=== PATIENT | male | born 1940 | race Two or more races ===

== ENCOUNTER 2017-09-15 10:58 | Emergency (ER) | payer MEDICARE, MEDICAID ==
[~2017-09-15] VITALS: Ht 165.1 cm; Wt 77.1 kg
--- NOTE | 2017-09-15 11:05 | NUR ---
C/O LEFT EYE REDNESS X1 DAY MANAGER CLEANING, NO DRAINAGE. A/OX 4. BREATHING EVEN AND UNLABORED. NO SOB. VITALS STABLE. SAFETY AND COMFORT MEASURES IN PLACE. AWAITING MD ORDERS.
--- NOTE | 2017-09-15 11:42 | NUR ---
AT BEDSIDE FOR EVAL.
[2017-09-15] MEDS ORDERED: LABETALOL HCL (100MG) 100 MG TABLET PO ONE (12:00)
[2017-09-15] MEDS ORDERED: LABETALOL HCL (100MG) 100 MG TABLET ONE (12:00)
[2017-09-15 12:11] VITALS: BP 171/99
--- NOTE | 2017-09-15 12:12 | NUR ---
Patient discharged to home in stable condition. Written and verbal after care instructions given. Patient verbalizes understanding of instruction.
== END 2017-09-15 12:12 | disposition home or self-care (01) ==
LOC: ER 11:06
DX: H11.32 Conjunctival hemorrhage, left eye (principal); I10 Essential (primary) hypertension; E11.9 Type 2 diabetes mellitus without complications; Z98.890 Other specified postprocedural states
CPT/HCPCS: A4606; Z7610

== ENCOUNTER 2020-03-08 12:10 | Inpatient (IN) | payer MEDICARE, OTHER ==
[~2020-03-08] VITALS: Ht 160 cm; Wt 63.5 kg
[~2020-03-08 12:10] MED LIST: *INS REG SQ; INSU100V7 SQ
[2020-03-08 12:40] LABS: BASOPHILS % (AUTO) 0.5 % (0.0-2.0); HEMATOCRIT 43 % (39-51); HEMOGLOBIN 14.3 g/dL (13.5-17.5); LYMPHOCYTES # (AUTO) 0.4 /CMM (0.8-4.8); LYMPHOCYTES % (AUTO) 5.8 % (20.0-44.0); MEAN CORPUSCULAR HGB CONC 33 g/dl (31.0-36.0); MEAN CORPUSCULAR VOLUME 95 fL (80-96); MONOCYTES # (AUTO) 0.1 /CMM (0.1-1.30); NEUTROPHILS # (AUTO) 6.7 /CMM (1.8-8.9); NEUTROPHILS % (AUTO) 92.7 % (43.0-81.0); PLATELET COUNT (AUTO) 336 /CMM (150-450); RED BLOOD CELL COUNT(AUTO) 4.53 MIL/uL (4.5-6.0); WHITE BLOOD COUNT (AUTO) 7.2 K/uL (4.3-11.0)
[2020-03-08 12:48] LABS: CALCIUM, SERUM 9.5 mg/dL (8.5-10.1); CARBON DIOXIDE 25 mmol/L (21-32); CHLORIDE 110 mmol/L (98-107); CREATININE 1.3 mg/dL (0.6-1.3); GLUCOSE 128 mg/dL (74-106); POTASSIUM 3.5 mmol/L (3.5-5.1); SODIUM SERUM 147 mmol/L (136-145); UREA NITROGEN, BLOOD 31 mg/dL (7-18)
[2020-03-08 12:56] LABS: APPEARANCE,URINE Clear (CLEAR); BILIRUBIN,URINE Negative (NEGATIVE); BLOOD, URINE Moderate Ery/uL (NEGATIVE); COLOR,URINE Yellow (YELLOW); KETONES,URINE Trace (NEGATIVE); LEUKOCYTE ESTERASE ,URINE Negative (NEGATIVE); NITRITE, URINE Negative (NEGATIVE); PH,URINE 5.5 (5.0-8.0); PROTEIN,URINE 100 mg/dl (NEGATIVE); UGLUCOSE >=1000 mg/dL (NEGATIVE); UROBILINOGEN,URINE 0.2 EU/dL (0.2)
--- NOTE | 2020-03-08 12:58 | NUR ---
BIB [facility] FROM [facility], LOW O2 SAT (80'S),DIAPHORETIC. PT NON VERBAL, EYES OPEN ONLY. PT O2 SAT 87%, PLACED ON 6L OF O2 BY RT, O2 SAT 96%. PT SEEN & EVAL'D BY DR. BRUSH. LABS DRAWN & COVID 19 RUBBER TUBING SPLICER SWAB COLLECTED & SENT TO LAB. PT STABLE, NO RESP DISTRESS @ THIS TIME. WILL CONT TO MONITOR.
[2020-03-08 13:01] LABS: ALANINE AMINOTRANSFERASE 53 U/L (12-78); ALBUMIN 2.6 g/dL (3.4-5.0); ALKALINE PHOSPHATASE 105 U/L (46-116); ASPARTATE AMINOTRANSFERASE 82 U/L (15-37); B-TYPE NATRIURETIC PEPTIDE 310 PG/ML (0-125); BILIRUBIN,TOTAL 0.6 mg/dL (0.2-1.0); TOTAL PROTEIN, SERUM 7.7 g/dL (6.4-8.2)
[2020-03-08 13:04] LABS: BACTERIA,URINE Many /HPF (None Seen); WBC,URINE 0-2 /HPF (0-3)
[2020-03-08 13:05] LABS: SQUAMOUS EPITHELIAL CELL,UR Few /HPF (None Seen)
[2020-03-08 13:14] LABS: CREATINE KINASE, TOTAL 111 U/L (39-308); FERRITIN 705 ng/mL (8-388)
[2020-03-08 13:15] LABS: ABG BASE EXCESS -3.7 mmol/L; ABG OXYGEN SATURATION 93.2 % (92.0-98.5); ABG PCO2 29.2 mmHg (35.0-45.0); ABG PH 7.435 (7.350-7.450); ABG PO2 68.9 mmHg (75.0-100.0); AaDO2 182.7 mmHg; COHb 0.6 % (0.5-1.5); MetHb 0.4 % (0.0-1.5); O2Hb 92.3 % (94.0-97.0); SITE, ABG Right Radial; VENT MODE, BG NC 5L
--- NOTE | 2020-03-08 13:16 | NUR ---
CALLED FOR TELE BED SEPSIS R/O COVID
[2020-03-08 13:18] LABS: D-DIMER 11.93 mg/L(FEU (0.17-0.50)
[2020-03-08 13:26] LABS: C-REACTIVE PROTEIN 29.9 mg/dL (0.0-0.9)
--- NOTE | 2020-03-08 13:59 | NUR ---
GOT BED 201
--- NOTE | 2020-03-08 14:15 | NUR ---
PT ASLEEP, EASILY AWAKEN WILL OPEN EYES WITH VERBAL STIMULI. VSS. NO RESP DISTRESS NOTED @ THIS TIME. WILL CONT TO MONITOR.
[2020-03-08] MEDS ORDERED: IOHEXOL-350 100 ML VIAL IV ONE (15:01)
[2020-03-08] MEDS ORDERED: AZITHROMYCIN 500 MG in IV D5W 250 ML IV SCH (15:30)
[2020-03-08] MEDS ORDERED: CEFTRIAXONE 1 G in IV D5W 50 ML IV SCH (15:30)
[2020-03-08 16:08] LABS: BILIRUBIN,DIRECT 0.2 mg/dL (0.0-0.2)
[2020-03-08] MEDS ORDERED: CEFTRIAXONE 1 G VIAL ONE (16:17)
[2020-03-08] MEDS ORDERED: IV NS 0.9% 1,000 ML IV ONE (16:30)
--- NOTE | 2020-03-08 16:43 | NUR ---
116-1 BED ASSIGNMENT FROM NURSING IAP DISPLAYS ANALYST.
--- NOTE | 2020-03-08 17:04 | NUR ---
REPORT GIVEN TO DAPHNEY HINTON FOR LESLEY.
[2020-03-08] MEDS ORDERED: ONDANSETRON HCL/PF 4 MG/2 ML VIAL IVP PRN (17:30)
[2020-03-08] MEDS ORDERED: HYDROCODONE/APAP 5/325MG TABLET PO PRN (17:30)
[2020-03-08] MEDS ORDERED: MAGNESIUM HYDROXIDE 30 ML UDC PO PRN (17:30)
[2020-03-08] MEDS ORDERED: MAG HYDROX/AL HYDROX/SIMETH 30 ML UDC PO PRN (17:30)
[2020-03-08] MEDS ORDERED: ZOLPIDEM TARTRATE 5 MG TABLET PO PRN (17:30)
[2020-03-08] MEDS ORDERED: Z GUARD REMEDY 2 OZ OINT TP PRN (17:30)
[2020-03-08] MEDS ORDERED: ACETAMINOPHEN 325 MG TABLET PO PRN (17:30)
--- NOTE | 2020-03-08 17:55 | NUR ---
RN ADMITTING NOTES RECIEVED PATIENT VIS [place] FROM THE ED. PT IS AOX1, VERBAL, AND ON BEDREST, HE IS ON 4L OF OXYGEN VIA NC, DENIES ANY SOB OR RESP DISTRESS AT THIS TIME. RHOCHI HEARD ON RML, RLL, LLL, UPON AUSCULTATION. IV SITE ON L HAND 18 G AND R AC 20 G PATENT AND INTACT. SKIN IS INTACT, NO WOUNDS PRESENT, SCAR PRESENT ON UPPER CHEST. NO EDEMA PRESENT. DR. FELIX MADE AWARE OF PT ARRIVAL, WAITING ADMITTING ORDERS. COVID ISO HAS BEEN IMPLEMENTED, WILL CONT. TO MONITOR FOR ANY CHANGES.
[2020-03-08] MEDS ORDERED: DEXTROSE 50%-WATER 50 ML DISP.SYRIN IV PRN (18:30)
--- NOTE | 2020-03-08 18:55 | NUR ---
RN NOTES PATIENT BEGAN TO DESAT TO LOW 80'S ON 4L OF OXYGEN, PLACED PT ON SIMPLE FACE MASK AT 6L, STILL IN THE 80'S. SPOKE WITH DR. FELIX, RECEIVED ORDER TO TITRATE OXYGEN TO MAINTAIN SPO2 >92%
[2020-03-08] MEDS: ENOXAPARIN SODIUM 40 MG/0.4 ML DISP.SYRIN SQ SCH (19:02)
--- NOTE | 2020-03-08 19:22 | NUR ---
RN CLOSING NOTES PATIENT IS RESTING IN BED COMFORTABLY, HE IS BEING NON-COMPLIANT WITH HIS OXYGEN THERAPY AT TIMES WITH MULTIPLE ATTEMPTS OF EXPLAINING THE IMPORTANCE OF WEARING THE MASK. PT ALSO PULLED OUT IV SITE ON L HAND, PT IS CONFUSED. COVID PRECAUTIONS HAVE BEEN IMPLEMENTED. SAFETY MEASURES HAVE BEEN IMPLEMENTED, CALL LIGHT IS WITHIN REACH, BED IS IN LOWEST AND LOCKED POSITION, SIDE RAILS UP X2
[2020-03-08 20:00] VITALS: BP 136/66
[2020-03-08] MEDS ORDERED: VANCOMYCIN 1.25 GM in IV D5W 250 ML IV ONE (20:00)
--- NOTE | 2020-03-08 20:15 | NUR ---
RN NOTE NOTED PT TO BE FEBRILE. COOLING MEASURES APPLIED. WILL MONITOR.
[2020-03-08] MEDS ORDERED: VANCOMYCIN 1 GM VIAL ONE (20:35)
[2020-03-08] MEDS ORDERED: PIPERACILLIN /TAZOBACTAM 3.375 G VIAL IV ONE (20:35)
[2020-03-08] MEDS ORDERED: VANCOMYCIN 500 MG VIAL ONE (20:37)
[2020-03-08] MEDS ORDERED: PIPERACILLIN /TAZOBACTAM 3.375 G in IV D5W 50 ML IV SCH (21:00)
[2020-03-08] MEDS: ZOSYN IVPB 3.375 G in IV D5W 50ml IV SCH (22:28)
[2020-03-08] MEDS: BLOOD SUGAR DIAGNOSTIC 1 EACH STRIP VI SCH (22:30)
[2020-03-08] MEDS: *INSULIN REGULAR(HUMULIN R)HUM 100 UNIT/ML VIAL SQ PRN (22:46)
[2020-03-09] VITALS (9 sets, daily range): BP systolic 130–144; BP diastolic 36–95
[2020-03-09] MEDS ORDERED: PIPERACILLIN /TAZOBACTAM 3.375 G VIAL IV ONE (03:42)
[2020-03-09] MEDS: ZOSYN IVPB 3.375 G in IV D5W 50ml IV SCH (04:17)
--- NOTE | 2020-03-09 07:00 | NUR ---
RN NOTE PT RESTING IN BED IN SEMI CERDA'S POSITION. PT ON NON REBREATHER AND WITH O2 SATURATION OF 90-92%. ALERT AND ORIENTED X 1-2. CALL LIGHT WITHIN REACH, SAFETY MEASURES IN PLACE, WILL ENDORSE MORNING RN FOR CONTINUATION OF CARE.
[2020-03-09 07:32] LABS: HEMATOCRIT 40 % (39-51); HEMOGLOBIN 13.2 g/dL (13.5-17.5); LYMPHOCYTES # (AUTO) 0.8 /CMM (0.8-4.8); LYMPHOCYTES % (AUTO) 6.3 % (20.0-44.0); MEAN CORPUSCULAR HGB CONC 33 g/dl (31.0-36.0); MEAN CORPUSCULAR VOLUME 95 fL (80-96); MONOCYTES # (AUTO) 0.2 /CMM (0.1-1.30); MONOCYTES % (AUTO) 1.3 % (2.0-12.0); NEUTROPHILS # (AUTO) 11.5 /CMM (1.8-8.9); NEUTROPHILS % (AUTO) 92.4 % (43.0-81.0); PLATELET COUNT (AUTO) 321 /CMM (150-450); WHITE BLOOD COUNT (AUTO) 12.4 K/uL (4.3-11.0)
[2020-03-09 07:39] LABS: CALCIUM, SERUM 9.2 mg/dL (8.5-10.1); CREATININE 1.1 mg/dL (0.6-1.3); MAGNESIUM 2.4 mg/dL (1.8-2.4); PHOSPHORUS 4.2 mg/dL (2.5-4.9); POTASSIUM 3.6 mmol/L (3.5-5.1)
--- NOTE | 2020-03-09 08:00 | NUR ---
RN OPENING NOTE RECEIVED PATIENT IN BED. NO ACUTE DISTRESS NOTED. PT. A&OX2, AWAKE, WITH CONFUSION. PT. ON NONREBREATHER MASK ON 15L, SATURATING WELL AT 95%. ON TELE MONITOR, SR NOTED, HR 83. R AC, HEPLOCK INTACT, FLUSHED WELL. FED BREAKFAST WITH SAFETY EQUIPMENT TESTING SPECIALIST. PT. RESTLESS NOW, AT RISK TO REMOVE ALL LINES. PLACE ORDER FOR BILATERAL SOFT RESTRAINT. ATTEMPTED TO CONTACT FAMILY, PHONE NUMBER NOT AVAILABLE. SAFETY MAINTAINED. CALL LIGHT WITHIN REACH. PLAN OF CARE DISCUSSED WITH PATIENT. WILL CONTINUE TO MONITOR CLOSELY.
[2020-03-09 08:03] LABS: THYROID STIMULATING HORMONE 0.479 uIU/mL (0.358-3.74)
[2020-03-09] MEDS: HYDROXYCHLOROQUINE 200 MG TABLET PO SCH ×2 (08:11→21:30)
[2020-03-09] MEDS: PANTOPRAZOLE 40 MG TABLET.DR PO SCH (08:11)
[2020-03-09] MEDS: ENOXAPARIN SODIUM 40 MG/0.4 ML DISP.SYRIN SQ SCH (08:12)
[2020-03-09] MEDS: BLOOD SUGAR DIAGNOSTIC 1 EACH STRIP VI SCH ×4 (08:29→22:47)
[2020-03-09] MEDS ORDERED: FEE PK DOSING 1 MIN EA MC ONE (08:48)
[2020-03-09] MEDS: VANCOMYCIN 0.75 GM in IV D5W 250 ML IV SCH ×2 (09:23→21:30)
--- NOTE | 2020-03-09 12:00 | NUR ---
telephone cleaner note spoke with dr ely aware that on nonrebreather mask and na 150 stated that will check it out
[2020-03-09] MEDS: PIPERACILLIN /TAZOBACTAM 3.375 G in IV D5W 50 ML IV SCH ×2 (12:48→17:05)
[2020-03-09] MEDS: INSULIN REGULAR, HUMAN 100 UNIT/ML 3 ML VIAL SQ PRN ×3 (13:01→22:50)
--- NOTE | 2020-03-09 13:53 | NUR ---
telephone operator chief note seen by rt notified aboUT 15 l nonrebreather MASK , sat 935 AT THIS ,OK TO LEAVE Nonrebreather mask at THIS TIME, DR FELIX NOTIFIED WILL F\U
[2020-03-09] MEDS ORDERED: IV 1/2NS 1000 ML 1,000 ML IV ONE (17:30)
[2020-03-09] MEDS: AZITHROMYCIN 500 MG in IV D5W 250 ML IV SCH (17:39)
--- NOTE | 2020-03-09 18:36 | NUR ---
RN CLOSING NOTE PATIENT HAD DINNER, 100% OF IT. ALL NEEDS ATTENDED TOO. CONTINUE NONREBREATHER MASK, NO SOB NOTED. CONTINUE ON 1/2NS AT 45CC/HR. PATIENT STILL NEEDS SOFT RESTRAINT BECAUSE HE IS AT RISK TO REMOVE ALL LINES. WE WILL CONTINUE TO MONITOR CLOSELY.
[2020-03-10] VITALS: BP 138/75
[2020-03-10] MEDS: PIPERACILLIN /TAZOBACTAM 3.375 G in IV D5W 50 ML IV SCH ×4 (00:29→18:10)
--- NOTE | 2020-03-10 00:30 | NUR ---
ATTEMPTED TO TITRATE PATIENT DOWN TO 12L OF 02 ON NRB BUT PATIENT DESATURATED TO 89%. O2 INCREASED BACK TO 15L ON NRB SATURATING AT 93%. WILL CONTINUE TO MONITOR.
[2020-03-10 04:00] VITALS: BP 149/75
--- NOTE | 2020-03-10 06:47 | NUR ---
TELE/RN PATIENT CURRENTLY IN NO SIGN OF ANY DISTRESS. CONTINUES ON NRB WITH 15L OF 02 SATURATING AT 93%. PATIENT DOES NOT COMPLAIN OF ANY SOB. ALL NEEDS MET WITH PATIENT. WILL ENDORSE PATIENT TO MORNING SHIFT NURSE FOR L[facility].
[2020-03-10 08:00] VITALS: BP 136/77
[2020-03-10] MEDS: PANTOPRAZOLE 40 MG TABLET.DR PO SCH (08:22)
[2020-03-10] MEDS: BLOOD SUGAR DIAGNOSTIC 1 EACH STRIP VI SCH ×3 (08:22→18:09)
[2020-03-10] MEDS: VANCOMYCIN 0.75 GM in IV D5W 250 ML IV SCH ×2 (08:22→23:44)
[2020-03-10] MEDS: HYDROXYCHLOROQUINE 200 MG TABLET PO SCH ×2 (08:22→17:30)
[2020-03-10] MEDS: ENOXAPARIN SODIUM 40 MG/0.4 ML DISP.SYRIN SQ SCH (08:23)
[2020-03-10 08:24] LABS: BASOPHILS % (AUTO) 0.1 % (0.0-2.0); HEMATOCRIT 37 % (39-51); HEMOGLOBIN 12.2 g/dL (13.5-17.5); LYMPHOCYTES # (AUTO) 0.7 /CMM (0.8-4.8); LYMPHOCYTES % (AUTO) 6.2 % (20.0-44.0); MEAN CORPUSCULAR HGB CONC 33 g/dl (31.0-36.0); MEAN CORPUSCULAR VOLUME 94 fL (80-96); MONOCYTES # (AUTO) 0.1 /CMM (0.1-1.30); MONOCYTES % (AUTO) 0.9 % (2.0-12.0); NEUTROPHILS # (AUTO) 10.6 /CMM (1.8-8.9); NEUTROPHILS % (AUTO) 92.8 % (43.0-81.0); PLATELET COUNT (AUTO) 314 /CMM (150-450); RED BLOOD CELL COUNT(AUTO) 3.91 MIL/uL (4.5-6.0); WHITE BLOOD COUNT (AUTO) 11.5 K/uL (4.3-11.0)
[2020-03-10 08:38] LABS: CREATININE 1.1 mg/dL (0.6-1.3); MAGNESIUM 2.4 mg/dL (1.8-2.4); POTASSIUM 3.4 mmol/L (3.5-5.1)
[2020-03-10] MEDS ORDERED: ACETAMINOPHEN 325 MG TABLET PO ONE (10:30)
[2020-03-10] MEDS ORDERED: diphenhydrAMINE HCL 25 MG CAPSULE PO ONE (10:30)
[2020-03-10 10:36] LABS: ABG BASE EXCESS -0.1 mmol/L; ABG PCO2 34.5 mmHg (35.0-45.0); ABG PH 7.448 (7.350-7.450); ABG PO2 92.8 mmHg (75.0-100.0); AaDO2 441.4 mmHg; COHb 0.6 % (0.5-1.5); MetHb 0.3 % (0.0-1.5); O2Hb 96.1 % (94.0-97.0); SITE, ABG Right Radial; VENT MODE, BG NRB
[2020-03-10] MEDS: methylPREDNISolone SOD SUCC 40 MG/ML VIAL IV SCH (11:00)
[2020-03-10] MEDS ORDERED: TOCILIZUMAB 400 MG in IV NS 0.9% 80 ML IV ONE (11:30)
[2020-03-10] MEDS ORDERED: POTASSIUM CHLORIDE 20 MEQ TAB.PRT.SR PO SCH (11:30)
[2020-03-10 12:00] VITALS: BP 145/75
--- NOTE | 2020-03-10 12:10 | NUR ---
Titrated O2 to 12l , via NRM . Patient tolerated well, saturation on monitor 97%
[2020-03-10] MEDS: INSULIN REGULAR, HUMAN 100 UNIT/ML 3 ML VIAL SQ PRN (12:21)
--- NOTE | 2020-03-10 13:10 | NUR ---
Oxygen titrated to 10L , saturation 97%. Patient tolerated well
[2020-03-10 16:00] VITALS: BP_SYST 101; BP_SYST 120; BP_DIAS 71
[2020-03-10] MEDS: AZITHROMYCIN 500 MG in IV D5W 250 ML IV SCH (17:30)
--- NOTE | 2020-03-10 19:14 | NUR ---
Patient remained stable on 10l via NRM. Patient A/O x3, needs assistance with fluid and food intake. All needs attended, will endorse to next shift for LESLEY
--- NOTE | 2020-03-10 19:45 | NUR ---
ROAD CONTRACTOR OPENING NOTE RECEIVED REPORT FROM THIERRY RN. Pt IS ON ISOLATION FOR +COVID 19. Pt IS RESTING IN BED, RESPIRATIONS EVEN AND UNLABORED. A/O X2-3, PER REPORT PATIENT CAN BE AGGRESSIVE & ATTEMPT TO PULL OFF NEEDED EQUIPMENT; RESTRAINTS ORDERED, BUT IS CURRENTLY OFF OF RESTRAINTS AT THIS TIME. PATIENT IS ON NRB MASK @10L SATTING @94%. NO S/S OF ACUTE DISTRESS OR SOB NOTED. NO SIGNS OF PAIN OR DISCOMFORT NOTED AT THIS TIME. ON TELE MONITOR; TELE READING SINUS RHYTHM HR 80s. IV ACCESS IN RAC #20G @TKO, INFUSING WELL. SAFETY MEASURES IN PLACE. BED LOW, LOCKED, HOB ELEVATED, SIDE RAILS UP, CALL LIGHT AND BEDSIDE TABLE WITHIN REACH. BED ALARM ON. WILL CONTINUE TO MONITOR Pt's CONDITION AND SAFETY THROUGHOUT THE NIGHT.
[2020-03-10 20:00] VITALS: BP 106/65
[2020-03-11] VITALS (7 sets, daily range): BP systolic 109–145; BP diastolic 62–75
[2020-03-11] MEDS: BLOOD SUGAR DIAGNOSTIC 1 EACH STRIP VI SCH ×5 (00:32→21:46)
[2020-03-11] MEDS: PIPERACILLIN /TAZOBACTAM 3.375 G in IV D5W 50 ML IV SCH ×5 (01:25→23:18)
[2020-03-11 06:49] LABS: BASOPHILS % (AUTO) 0.2 % (0.0-2.0); HEMATOCRIT 36 % (39-51); HEMOGLOBIN 11.8 g/dL (13.5-17.5); LYMPHOCYTES # (AUTO) 0.8 /CMM (0.8-4.8); LYMPHOCYTES % (AUTO) 15.3 % (20.0-44.0); MEAN CORPUSCULAR HGB CONC 33 g/dl (31.0-36.0); MEAN CORPUSCULAR VOLUME 94 fL (80-96); MONOCYTES # (AUTO) 0.1 /CMM (0.1-1.30); MONOCYTES % (AUTO) 1.2 % (2.0-12.0); NEUTROPHILS # (AUTO) 4.1 /CMM (1.8-8.9); NEUTROPHILS % (AUTO) 82.3 % (43.0-81.0); PLATELET COUNT (AUTO) 294 /CMM (150-450); RED BLOOD CELL COUNT(AUTO) 3.81 MIL/uL (4.5-6.0)
--- NOTE | 2020-03-11 07:15 | NUR ---
RN CLOSING NOTES NO SIGNIFICANT CHANGES IN Pt's CONDITION. ALL NEEDS MET AND ATTENDED TO. SAFETY MEASURES IN PLACE. TELE READING SR. Pt IS RESTING COMFORTABLY IN BED. NO S/S OF ACUTE DISTRESS OR SOB NOTED DURING THE NIGHT. WILL ENDORSE TO DAYSHIFT RN FOR Pt's LESLEY.
--- NOTE | 2020-03-11 07:30 | NUR ---
EXECUTIVE COORDINATOR NOTES PT IN BED, AWAKE, ALERT AND VERBALLY RESPONSIVE, NOT IN DISTRESS, NO COMPLAINT OF PAIN, EATING BREAKFAST, CALL LIGHT WITHIN REACH, NEEDS ATTENDED.
[2020-03-11 07:44] LABS: CALCIUM, SERUM 8.3 mg/dL (8.5-10.1); CREATININE 1.1 mg/dL (0.6-1.3); MAGNESIUM 2.2 mg/dL (1.8-2.4); PHOSPHORUS 3.8 mg/dL (2.5-4.9); POTASSIUM 3.2 mmol/L (3.5-5.1)
[2020-03-11] MEDS: methylPREDNISolone SOD SUCC 40 MG/ML VIAL IV SCH (08:02)
[2020-03-11] MEDS: HYDROXYCHLOROQUINE 200 MG TABLET PO SCH ×2 (08:02→16:13)
[2020-03-11] MEDS: PANTOPRAZOLE 40 MG TABLET.DR PO SCH (08:02)
[2020-03-11] MEDS: ENOXAPARIN SODIUM 40 MG/0.4 ML DISP.SYRIN SQ SCH (08:05)
[2020-03-11] MEDS: VANCOMYCIN 0.75 GM in IV D5W 250 ML IV SCH ×2 (08:05→21:24)
[2020-03-11] MEDS: POTASSIUM CHLORIDE 20 MEQ TAB.PRT.SR PO SCH ×2 (10:53→11:55)
[2020-03-11 10:56] LABS: D-DIMER 5.27 mg/L(FEU (0.17-0.50)
[2020-03-11] MEDS ORDERED: POTASSIUM CHLORIDE 20 MEQ TAB.PRT.SR PO SCH (13:00)
[2020-03-11] MEDS: AZITHROMYCIN 500 MG in IV D5W 250 ML IV SCH (16:13)
[2020-03-11] MEDS: INSULIN REGULAR, HUMAN 100 UNIT/ML 3 ML VIAL SQ PRN ×2 (16:37→21:50)
--- NOTE | 2020-03-11 19:15 | NUR ---
HOSPICE SPIRITUAL CARE COORDINATOR NOTES PT IN BED, AWAKE, ALERT AND VERBALLY RESPONSIVE, NO COMPLAINT AT THIS TIME, NOT IN DISTRESS, RESPIRATIONS NORMAL AND NOT LABORED, ON NRB MASK AT 15LPM, O2 SAT DROPS TO 88% DURING MEALTIMES, PT REMAINS STABLE AND NO SOB, PM MEDS GIVEN, ALL NEEDS ATTENDED.
--- NOTE | 2020-03-11 19:40 | NUR ---
CLINICAL DATA RESEARCH NOTES PATIENT RECEIVED IN BED, AWAKE, ALERT AND ORIENTED X 2, MAINLY MALTESE SPEAKING. PATIENT ON NON-REBREATHER MASK, WITH NON-LABORED BREATHING, SPO2 SATURATION, 94%. ON GRAIN ORIGINATION SPECIALIST NORMAL SINUS, 70'S. IV ACCESS INTACT, PATENT AND IN PLACE. PATIENT SKIN WARM AND DRY TO TOUCH. PATIENT DENIES ANY PAIN OR DISCOMFORT AT THIS TIME. SAFETY PRECAUTIONS IN PLACE WITH BED IN LOWEST POSITION, BED LOCKED, BILATERAL SIDE RAILS UP, AND CALL LIGHT WITHIN EASY REACH OF THE PATIENT. WILL CONTINUE TO MONITOR PATIENT.
--- NOTE | 2020-03-11 21:50 | NUR ---
AUTO INSPECTION SPECIALIST NOTES PATIENT'S BLOOD SUGAR 196, PER SLIDING SCALE, 3 UNITS OF INSULIN ADMINISTERED. PROVIDED SNACKS AND JUICE TO THE PATIENT. WILL CONTINUE TO MONITOR PATIENT.
[2020-03-12] VITALS (7 sets, daily range): BP systolic 107–138; BP diastolic 62–73
[2020-03-12] MEDS: PIPERACILLIN /TAZOBACTAM 3.375 G in IV D5W 50 ML IV SCH ×4 (05:18→23:42)
--- NOTE | 2020-03-12 06:43 | NUR ---
FELT PAD CUTTER NOTES PATIENT IN BED AWAKE, RESTING COMFORTABLY. ON NON-REBREATHER, 15L, O2 SATURATION OF 90%, WITH NON-LABORED BREATHING. ON TRIPE SCRAPER, 60'S. PATIENT IV ACCESS INTACT AND PATENT. SKIN KEPT CLEAN AND DRY. PATIENT PRESENTS NO SIGN OF PAIN AND DISCOMFORT AT THIS TIME. MET ALL OF PATIENT'S NEEDS AND PROVIDED COMFORT MEASURES. SAFETY PRECAUTIONS IN PLACE WITH BED IN THE LOWEST POSITION, BILATERAL SIDE RAILS UP, BED ALARM ON, BED LOCKED AND CALL LIGHT WITHIN EASY REACH OF THE PATIENT. WILL ENDORSE PLAN OF CARE TO UPCOMING DAYSHIFT NURSE.
--- NOTE | 2020-03-12 08:00 | NUR ---
EMERGENCY CREW SUPERVISOR OPENING NOTES RECEIVED PATIENT IN BED, AWAKE, ALERT AND ORIENTED X 2-3, MAINLY INDONESIAN SPEAKING. WITH PERIODS OF FORGETFULNESS AND CONFUSION. NO CARDIAC OR RESP DISTRESS NOTED. BREATHING IS EVEN AND UNLABORED. PT ON NON-REBREATHER MASK AT 15L/MIN SATURATING AT 94%. ON CARDIAC TELE MONITOR SHOWING NORMAL SINUS RYTHYM WITH HR OF 70S TO 80S. IV ACCESS NOTED ON R ANTECUBITAL G20. IV ACCESS INTACT AND PATENT AND FLUSHING WELL. NO S/S OF INFGECTION OR INFILTRATION NOTED. PT HAS NO COMPLAINTS OF PAIN OR DISCOMFORT. SAFETY PRECAUTIONS IN PLACE WITH BED LOCKED AND IN LOWEST POSITION, BILATERAL SIDE RAILS UP, AND CALL LIGHT WITHIN EASY REACH OF THE PATIENT. WILL CONTINUE TO MONITOR PATIENT.
[2020-03-12] MEDS: BLOOD SUGAR DIAGNOSTIC 1 EACH STRIP VI SCH ×4 (08:01→22:20)
[2020-03-12] MEDS: INSULIN REGULAR, HUMAN 100 UNIT/ML 3 ML VIAL SQ PRN ×4 (08:01→22:13)
[2020-03-12] MEDS: methylPREDNISolone SOD SUCC 40 MG/ML VIAL IV SCH (08:18)
[2020-03-12] MEDS: PANTOPRAZOLE 40 MG TABLET.DR PO SCH (08:18)
[2020-03-12] MEDS: HYDROXYCHLOROQUINE 200 MG TABLET PO SCH ×2 (08:18→16:22)
[2020-03-12] MEDS: ENOXAPARIN SODIUM 40 MG/0.4 ML DISP.SYRIN SQ SCH (08:19)
[2020-03-12 08:21] LABS: BASOPHILS % (AUTO) 0.2 % (0.0-2.0); EOSINOPHILS % (AUTO) 0.3 % (0.0-6.0); HEMATOCRIT 39 % (39-51); HEMOGLOBIN 12.8 g/dL (13.5-17.5); LYMPHOCYTES # (AUTO) 0.8 /CMM (0.8-4.8); LYMPHOCYTES % (AUTO) 13.2 % (20.0-44.0); MEAN CORPUSCULAR HGB CONC 33 g/dl (31.0-36.0); MEAN CORPUSCULAR VOLUME 93 fL (80-96); MONOCYTES # (AUTO) 0.2 /CMM (0.1-1.30); MONOCYTES % (AUTO) 2.5 % (2.0-12.0); NEUTROPHILS # (AUTO) 5.1 /CMM (1.8-8.9); NEUTROPHILS % (AUTO) 83.8 % (43.0-81.0); PLATELET COUNT (AUTO) 342 /CMM (150-450); RED BLOOD CELL COUNT(AUTO) 4.15 MIL/uL (4.5-6.0); WHITE BLOOD COUNT (AUTO) 6.1 K/uL (4.3-11.0)
[2020-03-12 08:33] LABS: CALCIUM, SERUM 8.6 mg/dL (8.5-10.1); CREATININE 1.2 mg/dL (0.6-1.3); POTASSIUM 3.6 mmol/L (3.5-5.1)
[2020-03-12] MEDS: VANCOMYCIN 0.75 GM in IV D5W 250 ML IV SCH ×2 (09:08→21:26)
--- NOTE | 2020-03-12 10:30 | NUR ---
SEEN BY DR. LONG PT WAS SEEN BY DR. LONG. MD MADE AWARE OF PTS CURRENT O2 REQUIREMENTS OF 15L VIA NON-REBREATHER MASK. DESATURATION NOTED NOTED WHEN PT PTS O2 IS TITRATED DOWN. PER DR. LONG, OKAY TO KEEP ON NON REBREATHER MASK LONG O2 IS KEPT TO >92%.
--- NOTE | 2020-03-12 16:00 | NUR ---
D/C RESTRAINTS D/C BILATERAL SOFT WRIST RESTRAINTS. ORDER NOT RENEWED. PT WAS CALM AND COOPERATIVE WITH MEDS AND TREATMENTS SINCE THIS AM. NO DISTRESS NOTED. NO BEHAVIORS OF TRYING TO PULL OUT TUBES. NO AGITATION SINCE THIS AM NOTED. BILATERAL SOFT WRIST RESTRAINTS WAS NOT APPLIED THROUGHOUT THE SHIFT, IT WAS NOT NEEDED. NO BEHAVIORS TO TRYING TO GET UP UNASSISTED. SAFETY PRECAUTIONS/MEASURES WERE IN PLACE. BED LOCKED AND IN LOW POSITION. SIDE RAILS UP X2. CALL LIGHT WITHIN REACH. PT WAS VERY PLEASANT AND CALM AND COOPERATIVE SINCE THIS AM.
[2020-03-12] MEDS: AZITHROMYCIN 500 MG in IV D5W 250 ML IV SCH (16:22)
--- NOTE | 2020-03-12 19:29 | NUR ---
IDENTIFICATION AND RECORDS COMMANDER CLOSING NOTES PATIENT IN BED, AWAKE, ALERT AND ORIENTED X 2-3, MAINLY NIUEAN SPEAKING. WITH PERIODS OF FORGETFULNESS AND CONFUSION. NO CARDIAC OR RESP DISTRESS NOTED. BREATHING IS EVEN AND UNLABORED. PT ON NON-REBREATHER MASK AT 15L/MIN SATURATING AT 97%. ON CARDIAC TELE MONITOR SHOWING NORMAL SINUS RYTHYM WITH HR OF 70S TO 80S. IV ACCESS NOTED ON R ANTECUBITAL G20. IV ACCESS INTACT AND PATENT AND FLUSHING WELL. NO S/S OF INFECTION OR INFILTRATION NOTED. PT HAS NO COMPLAINTS OF PAIN OR DISCOMFORT. SAFETY PRECAUTIONS IN PLACE WITH BED LOCKED AND IN LOWEST POSITION, BILATERAL SIDE RAILS UP, AND CALL LIGHT WITHIN EASY REACH OF THE PATIENT. ENDORSE TO RACING DRIVER REGARDING ORDERS OR PLASMA. CHARGE NURSE ALSO MADE AWARE.
--- NOTE | 2020-03-12 20:30 | NUR ---
RN OPENING NOTES Received patient awake on bed. On NRB, no SOB/respiratory distress noted, saturating well. Patient denies any discomfort at this time. On tele monitor with NSR noted. Kept on bed clean dry and comfortable. On fall and aspiration precautions. Will continue to monitor accordingly.
[2020-03-13] VITALS: BP 140/79
[2020-03-13 04:00] VITALS: BP 136/71
[2020-03-13] MEDS: *INSULIN REGULAR(HUMULIN R)HUM 100 UNIT/ML VIAL SQ PRN ×4 (04:42→22:30)
[2020-03-13] MEDS: PIPERACILLIN /TAZOBACTAM 3.375 G in IV D5W 50 ML IV SCH ×3 (05:23→18:09)
--- NOTE | 2020-03-13 06:13 | NUR ---
RN CLOSING NOTES Patient asleep on bed. On NRB, no SOB/respiratory distress noted, saturating well. Patient denies any discomfort at this time. On tele monitor with NSR noted. All nursing needs attended, no new unusualities noted. Kept on bed clean dry and comfortable. On fall and aspiration precautions. Will continue to monitor accordingly.
[2020-03-13 06:22] LABS: BASOPHILS % (AUTO) 0.1 % (0.0-2.0); EOSINOPHILS % (AUTO) 0.4 % (0.0-6.0); HEMATOCRIT 36 % (39-51); HEMOGLOBIN 12.2 g/dL (13.5-17.5); LYMPHOCYTES # (AUTO) 1.1 /CMM (0.8-4.8); LYMPHOCYTES % (AUTO) 15.3 % (20.0-44.0); MEAN CORPUSCULAR HGB CONC 34 g/dl (31.0-36.0); MEAN CORPUSCULAR VOLUME 93 fL (80-96); MONOCYTES # (AUTO) 0.2 /CMM (0.1-1.30); MONOCYTES % (AUTO) 2.6 % (2.0-12.0); NEUTROPHILS # (AUTO) 5.6 /CMM (1.8-8.9); NEUTROPHILS % (AUTO) 81.6 % (43.0-81.0); PLATELET COUNT (AUTO) 339 /CMM (150-450); WHITE BLOOD COUNT (AUTO) 6.9 K/uL (4.3-11.0)
[2020-03-13 06:46] LABS: CALCIUM, SERUM 8.2 mg/dL (8.5-10.1); CREATININE 1.1 mg/dL (0.6-1.3); POTASSIUM 3.1 mmol/L (3.5-5.1)
--- NOTE | 2020-03-13 07:30 | NUR ---
Tele/RN Opening note Received patient in bed, AOx 2, confused, able to responds all stimuli. Pt does no c/o pain or any discomfort, skin is warm to touch, kept clean/dry. Pt is on NRB mask, no s/s of respiratory distress, o2sat 93-96%. Blood sugar level was 122mg.dl in this morning. Kept lower position of the bed with locked wheel and elevated head of bed for secure air way. Call light within reach, will continue to monitor.
[2020-03-13] MEDS: BLOOD SUGAR DIAGNOSTIC 1 EACH STRIP VI SCH ×4 (07:56→22:31)
[2020-03-13] MEDS: PANTOPRAZOLE 40 MG TABLET.DR PO SCH (07:56)
[2020-03-13 08:00] VITALS: BP 144/76
[2020-03-13] MEDS: VANCOMYCIN 0.75 GM in IV D5W 250 ML IV SCH ×2 (08:45→22:15)
[2020-03-13] MEDS: methylPREDNISolone SOD SUCC 40 MG/ML VIAL IV SCH (08:45)
[2020-03-13 08:46] LABS: ABG BASE EXCESS -0.2 mmol/L; ABG OXYGEN SATURATION 92.6 % (92.0-98.5); ABG PCO2 35.6 mmHg (35.0-45.0); ABG PO2 70.2 mmHg (75.0-100.0); AaDO2 607.2 mmHg; COHb 0.5 % (0.5-1.5); MetHb 0.2 % (0.0-1.5); SITE, ABG Left Radial; VENT MODE, BG NRB 15L
[2020-03-13] MEDS: HYDROXYCHLOROQUINE 200 MG TABLET PO SCH ×2 (08:46→17:12)
[2020-03-13] MEDS: ENOXAPARIN SODIUM 40 MG/0.4 ML DISP.SYRIN SQ SCH (08:47)
--- NOTE | 2020-03-13 11:50 | NUR ---
Received endorse from cook night regarding patient has plasma therapy, called blood bank who said"will takes few days to get ready, will call you when it's ready." Will continue to awaiting.
--- NOTE | 2020-03-13 11:50 | NUR ---
Received endorse from machinist 2nd shift regarding patient has plasma therapy, called blood bank who said"will takes few days to get ready, will call you when you ready." Will continue to awaiting. Addendum: 03/13/20 at 1931 by LEEROY PEREZ RN error
[2020-03-13 12:00] VITALS: BP 140/80
[2020-03-13] MEDS: POTASSIUM CHLORIDE 20 MEQ TAB.PRT.SR PO SCH ×2 (12:20→13:53)
[2020-03-13] MEDS ORDERED: POLY15DR40 EACHEYE (13:37)
[2020-03-13] MEDS ORDERED: METF-442 PO (13:37)
[2020-03-13] MEDS ORDERED: ACID1TAB12 PO (13:37)
[2020-03-13] MEDS ORDERED: MYRBETRIQ PO (13:37)
[2020-03-13] MEDS ORDERED: ENTA200T PO (13:37)
[2020-03-13] MEDS ORDERED: ACET-868 PO (13:37)
[2020-03-13] MEDS ORDERED: CITA20TA19 PO (13:37)
[2020-03-13] MEDS ORDERED: CRAN450C PO (13:37)
[2020-03-13] MEDS ORDERED: INSU100I26 SQ (13:37)
[2020-03-13] MEDS ORDERED: ATOR10TA PO (13:37)
[2020-03-13] MEDS ORDERED: MAGN400O6 PO (13:37)
[2020-03-13] MEDS ORDERED: BISA10SU11 RC (13:37)
[2020-03-13] MEDS ORDERED: ACET-2605 PO ×2 (13:37)
[2020-03-13] MEDS ORDERED: INSU100V30 SQ (13:37)
[2020-03-13] MEDS ORDERED: TRIA80CR12 TP (13:37)
[2020-03-13] MEDS ORDERED: POTA20TA83 PO (13:37)
[2020-03-13] MEDS ORDERED: NA P133E RC (13:37)
[2020-03-13] MEDS ORDERED: DAPA5TAB PO (13:37)
[2020-03-13] MEDS ORDERED: MULT-447 PO (13:37)
[2020-03-13] MEDS ORDERED: TRAM50TA2 PO (13:37)
[2020-03-13] MEDS ORDERED: CARB-93 PO (13:37)
[2020-03-13 16:00] VITALS: BP 128/78
[2020-03-13] MEDS: AZITHROMYCIN 500 MG in IV D5W 250 ML IV SCH (17:11)
--- NOTE | 2020-03-13 18:30 | NUR ---
Tele/RN Closing note Patient in bed comfortably, confuse, does no appears pain or any discomfort. Pt is on NRB mask and tolerated, no sob or distress observed. Skin is warm to touch, kept clean/dry, intact IV site. Kept low position of the bed with locked wheel and elevated head of bed for secure airway. Call light within reach, will endorse warehouse shift supervisor.
[2020-03-13 20:00] VITALS: BP 134/73
[2020-03-14] VITALS (7 sets, daily range): BP systolic 131–147; BP diastolic 63–80
[2020-03-14] MEDS: PIPERACILLIN /TAZOBACTAM 3.375 G in IV D5W 50 ML IV SCH ×4 (00:47→17:07)
--- NOTE | 2020-03-14 06:41 | NUR ---
FLIGHT COMMUNICATIONS SPECIALIST CLOSING NOTES: PATIENT IN BED ASLEEP, AROUSABLE. NO COMPLAIN OF PAIN DURING THE SHIFT. NO SOB NOTED. CALL LIGHT WITHIN REACH. BED ALARM ON. BED IN LOWEST AND LOCKED POSITION. COVID ISOLATION OBSERVED AT ALL TIMES. PATIENT KEPT ON NON-REBREATHER MASK. AFEBRILE.
[2020-03-14 07:11] LABS: BASOPHILS % (AUTO) 0.1 % (0.0-2.0); EOSINOPHILS % (AUTO) 0.8 % (0.0-6.0); HEMATOCRIT 39 % (39-51); LYMPHOCYTES # (AUTO) 0.9 /CMM (0.8-4.8); MEAN CORPUSCULAR HGB CONC 34 g/dl (31.0-36.0); MEAN CORPUSCULAR VOLUME 93 fL (80-96); MONOCYTES # (AUTO) 0.2 /CMM (0.1-1.30); MONOCYTES % (AUTO) 1.9 % (2.0-12.0); NEUTROPHILS # (AUTO) 8.2 /CMM (1.8-8.9); NEUTROPHILS % (AUTO) 87.2 % (43.0-81.0); PLATELET COUNT (AUTO) 370 /CMM (150-450); RED BLOOD CELL COUNT(AUTO) 4.17 MIL/uL (4.5-6.0); WHITE BLOOD COUNT (AUTO) 9.4 K/uL (4.3-11.0)
[2020-03-14 07:43] LABS: CALCIUM, SERUM 8.4 mg/dL (8.5-10.1); POTASSIUM 3.8 mmol/L (3.5-5.1)
--- NOTE | 2020-03-14 07:47 | NUR ---
SENIOR SYSTEMS SOFTWARE ENGINEER NOTES BLOOD SUGAR 106 MG/DL. NO COVER.
[2020-03-14] MEDS: BLOOD SUGAR DIAGNOSTIC 1 EACH STRIP VI SCH ×4 (07:54→22:58)
[2020-03-14] MEDS: PANTOPRAZOLE 40 MG TABLET.DR PO SCH (07:55)
--- NOTE | 2020-03-14 08:00 | NUR ---
COLLAR TACKER OPENING NOTES RECEIVED FROM MILK DRIER NURSE, IN BED, CONSCIOUS, COOPERATIVE, AWAKE, WITH NON-REBREATHER MASK AT 15LPM, RIGHT AC 20G, SIDE RAILS UP.
[2020-03-14] MEDS: methylPREDNISolone SOD SUCC 40 MG/ML VIAL IV SCH (08:24)
[2020-03-14] MEDS: ENOXAPARIN SODIUM 40 MG/0.4 ML DISP.SYRIN SQ SCH (08:25)
[2020-03-14] MEDS: VANCOMYCIN 0.75 GM in IV D5W 250 ML IV SCH ×2 (08:44→21:38)
--- NOTE | 2020-03-14 11:33 | NUR ---
LOCKSTITCH HEMMER NOTES BLOOD SUGAR 192 MG'/DL. 3 UNITS OF INSULIN GIVEN SQ.
--- NOTE | 2020-03-14 11:45 | NUR ---
INDUSTRIAL COMMERCIAL GROUNDSKEEPER NOTES POSTIONED PATIENT IN A PRONE POSITION.
[2020-03-14] MEDS: INSULIN REGULAR, HUMAN 100 UNIT/ML 3 ML VIAL SQ PRN ×2 (12:10→18:01)
--- NOTE | 2020-03-14 12:15 | NUR ---
PAPER ROLLER NOTES RE-POSITION PATIENT TO SUPINE POSITION. PATIENT WAS NOT ABLE TO TOLERATE PRONE POSITION.
--- NOTE | 2020-03-14 17:34 | NUR ---
CARVER HAND NOTS BLOOD SUGAR 192MG/DL. 3 UNITS INSULIN GIVEN SQ.
--- NOTE | 2020-03-14 18:45 | NUR ---
VIDEO GAME PRODUCER CLOSING NOTES ENDORSED PATIENT TO HSE SPECIALIST NURSE IN BED, AWAKE, A/0 X2, CONFUSED, NON RE-BREATHER MASK AT 15LPM, NO SIGNS OF RESPIRATORY DISTRESS, RIGHT AC 20G SALINE LOCK, NO SIGNS OF REDNESS OR INFILTRATION NOTED, SIDE RAILS UP FOR SAFETY.
--- NOTE | 2020-03-14 19:10 | NUR ---
RESEARCH LIBRARIAN NOTES RECEIVED PT IN BED AWAKE AND ABLE TO MAKE NEEDS KNOWN. PT A/O X2. RESPIRATIONS EVEN AND UNLABORED WITH NO S/S OF ACUTE DISTRESS OR SOB NOTED. NO COMPLAINTS OF PAIN AT THIS TIME. SAFETY MEASURES IN PLACE WITH BED IN LOWEST LOCKED POSITION WITH SIDE RAILS UP X2. CALL LIGHT WITHIN REACH. WILL CONTINUE TO MONITOR.
[2020-03-14] MEDS: *INSULIN REGULAR(HUMULIN R)HUM 100 UNIT/ML VIAL SQ PRN (22:59)
--- NOTE | 2020-03-14 22:59 | NUR ---
MANGANESE BREAKER NOTES PT REFUSED SLIDING SCALE INSULIN. WILL CONTINUE TO MONITOR.
[2020-03-15] VITALS: BP 149/74
[2020-03-15] MEDS: PIPERACILLIN /TAZOBACTAM 3.375 G in IV D5W 50 ML IV SCH ×4 (00:08→17:01)
[2020-03-15 04:00] VITALS: BP 151/78
[2020-03-15 06:33] LABS: BASOPHILS % (AUTO) 0.2 % (0.0-2.0); EOSINOPHILS % (AUTO) 0.8 % (0.0-6.0); HEMATOCRIT 40 % (39-51); HEMOGLOBIN 13.5 g/dL (13.5-17.5); LYMPHOCYTES # (AUTO) 1.1 /CMM (0.8-4.8); MEAN CORPUSCULAR HGB CONC 34 g/dl (31.0-36.0); MEAN CORPUSCULAR VOLUME 92 fL (80-96); MONOCYTES # (AUTO) 0.2 /CMM (0.1-1.30); MONOCYTES % (AUTO) 2.6 % (2.0-12.0); NEUTROPHILS # (AUTO) 7.6 /CMM (1.8-8.9); NEUTROPHILS % (AUTO) 84.4 % (43.0-81.0); PLATELET COUNT (AUTO) 376 /CMM (150-450); RED BLOOD CELL COUNT(AUTO) 4.33 MIL/uL (4.5-6.0)
[2020-03-15 06:54] LABS: CALCIUM, SERUM 8.6 mg/dL (8.5-10.1); CREATININE 0.9 mg/dL (0.6-1.3); POTASSIUM 3.6 mmol/L (3.5-5.1)
--- NOTE | 2020-03-15 07:18 | NUR ---
BULLDOZER PRESS OPERATOR NOTES PT IN BED AWAKE AND ABLE TO MAKE NEEDS KNOWN. PT A/O X2. RESPIRATIONS EVEN AND UNLABORED WITH NO S/S OF ACUTE DISTRESS OR SOB NOTED THROUGHOUT SHIFT. PT KEPT CLEAN, DRY, AND COMFORTABLE. NO COMPLAINTS OF PAIN AT THIS TIME. SAFETY MEASURES IN PLACE WITH BED IN LOWEST LOCKED POSITION WITH SIDE RAILS UP X2. CALL LIGHT WITHIN REACH. WILL ENDORSE TO ONCOMING NURSE FOR [facility].
--- NOTE | 2020-03-15 07:20 | NUR ---
ROOM SERVICE SUPERVISOR OPENING NOTES RECEIVED PT IN BED. AWAKE, A/O X2, ABLE TO ANSWERS SIMPLE QUESTIONS IN OCCITAN. PT ON SUPPLEMENTARY OXYGEN AT 15LPM VIA NRB, WITH NO ACUTE RESPIRATORY DISTRESS NOTED. PT DENIES ANY PAIN OR DISCOMFORT AT THIS TIME WELL. PT DENIES ANY CONCERNS OR QUESTIONS. ON TELEMONITORING AT SR 63. PIV TO RAC G20, FLUSHED WITH NS, INTACT AND OPERATIONAL. PT KEPT COMFORTABLE IN BED. CALL LIGHT KEPT WITHIN REACH. PT'S BED IN LOWEST, LOCKED POSITION X3. WILL CONTINUE PLAN OF CARE.
[2020-03-15 08:00] VITALS: BP 129/71
[2020-03-15] MEDS: BLOOD SUGAR DIAGNOSTIC 1 EACH STRIP VI SCH ×4 (08:01→22:15)
[2020-03-15] MEDS: VANCOMYCIN 0.75 GM in IV D5W 250 ML IV SCH ×2 (08:43→22:23)
[2020-03-15] MEDS: methylPREDNISolone SOD SUCC 40 MG/ML VIAL IV SCH (08:43)
[2020-03-15] MEDS: PANTOPRAZOLE 40 MG TABLET.DR PO SCH (08:43)
[2020-03-15] MEDS: ENOXAPARIN SODIUM 40 MG/0.4 ML DISP.SYRIN SQ SCH (08:45)
[2020-03-15 09:36] LABS: ABG BASE EXCESS -0.7 mmol/L; ABG OXYGEN SATURATION 90.9 % (92.0-98.5); ABG PCO2 33.4 mmHg (35.0-45.0); ABG PH 7.448 (7.350-7.450); ABG PO2 62.2 mmHg (75.0-100.0); AaDO2 473.1 mmHg; MetHb 0.3 % (0.0-1.5); O2Hb 90.6 % (94.0-97.0); SITE, ABG Right Radial; VENT MODE, BG NRB
--- NOTE | 2020-03-15 10:24 | NUR ---
PSYCH TECH NOTES DR. CROUCH SEEN AND EVALUATED PT. RN INFORMED THE ABG RESULT WELL. NO NEW ORDERS NOTED AT THIS TIME. WLL CONTINUE TO MONITOR.
[2020-03-15 12:00] VITALS: BP 118/71
[2020-03-15] MEDS: INSULIN REGULAR, HUMAN 100 UNIT/ML 3 ML VIAL SQ PRN ×2 (12:26→17:01)
[2020-03-15 16:00] VITALS: BP 122/67
--- NOTE | 2020-03-15 18:40 | NUR ---
SPANISH LECTURER CLOSING NOTES PT REMAINS IN BED. AWAKE, A/O X2, HEBREW BUT CAN UNDERSTAND POLISH. PT ON SUPPLEMENTARY OXYGEN AT 15LPM VIA NRB, WITH NO ACUTE RESPIRATORY DISTRESS NOTED. PT DENIES ANY PAIN OR DISCOMFORT AT THIS TIME WELL. ON TELEMONITORING AT SR 82. PIV TO RAC G20, FLUSHED WITH NS, INTACT AND OPERATIONAL. PT KEPT COMFORTABLE IN BED. ALL NEEDS AND CARE PROVIDED AND ATTENDED. CALL LIGHT KEPT WITHIN REACH. PT'S BED IN LOWEST, LOCKED POSITION X3. WILL ENDORSE TO INCOMING NIGHT NURSE FOR [place].
[2020-03-15 20:00] VITALS: BP 136/72
--- NOTE | 2020-03-15 20:00 | NUR ---
STRIP MACHINE TENDER OPENING NOTES RECEIVED PT IN BED. AWAKE, A/O X2, PT ON OXYGEN AT 15LPM VIA NRB,NO SOB , NO ACUTE RESPIRATORY DISTRESS NOTED. PT DENIES ANY PAIN OR DISCOMFORT AT THIS TIME ,V/S STABLE AFEBRILE. ON TELE MONITOR SR 90, PIV TO RAC G20 INTACT AND PATENT. PT KEPT COMFORTABLE IN BED. ALL DUE MEDS GIVEN ORDERED. CALL LIGHT WITHIN REACH.ALL NEEDS ATTENDED TOO, PT'S BED IN LOWEST, LOCKED POSITION X3. PRECAUTIONARY MEASURES OBSERVED AT ALL TIMES .WILL CONTINUE PLAN OF CARE.
--- NOTE | 2020-03-15 21:25 | NUR ---
RN NOTES REPORTED BY DAPHNEY PEACE THAT VANCO THROUGH WAS NOT DRAWN AT 8PM AND HAD TO CALL LAB FOR IT. 2144 PAPER GRADER CAME TO DRAW BLOOD
--- NOTE | 2020-03-15 22:00 | NUR ---
BORDER MEASURER NOTES BLOOD SUGAR AT 10PM IS 134MG/DL 2 UNITS OF REGULAR INSULIN GIVEN PER SLIDING SCALE.WILL CHECK BS AGAIN IN AM.
[2020-03-15] MEDS: *INSULIN REGULAR(HUMULIN R)HUM 100 UNIT/ML VIAL SQ PRN (22:17)
[2020-03-16] VITALS (20 sets, daily range): BP systolic 102–143; BP diastolic 50–84
[2020-03-16] MEDS: PIPERACILLIN /TAZOBACTAM 3.375 G in IV D5W 50 ML IV SCH ×4 (00:48→18:07)
--- NOTE | 2020-03-16 06:20 | NUR ---
SUPERVISOR GATE SERVICES NOTES PTS NOTED DESATURATING 86-88% NO SOB NOTED , PTS ON 15LITERS NON REBREATHER MASK DENIES ANY PAIN OR ACUTE DISTRESS , PTS IS ALERT ORIENTED X2 ABLE TO ANSWER QUESTION , COLLEEN PHYSICIAN EXTENDER MADE AWARE WITH ORDER STAT ABG , RESULT RELAYED TO COLLEEN AWAITING FOR ORDER .ENDORSE TO DAPHNEY PARMAR FOR CONTINUITY OF CARE.AND TO FOLLOW UP ORDER FOR ABG RESULT.
[2020-03-16 06:56] LABS: ABG BASE EXCESS 0.2 mmol/L; ABG OXYGEN SATURATION 85.9 % (92.0-98.5); ABG PCO2 35.1 mmHg (35.0-45.0); ABG PH 7.448 (7.350-7.450); AaDO2 627.9 mmHg; COHb 0.2 % (0.5-1.5); MetHb 0.2 % (0.0-1.5); O2Hb 85.6 % (94.0-97.0); SITE, ABG Right Radial
[2020-03-16 07:15] LABS: BASOPHILS % (AUTO) 0.1 % (0.0-2.0); EOSINOPHILS % (AUTO) 0.7 % (0.0-6.0); HEMATOCRIT 41 % (39-51); HEMOGLOBIN 13.5 g/dL (13.5-17.5); LYMPHOCYTES # (AUTO) 1.1 /CMM (0.8-4.8); LYMPHOCYTES % (AUTO) 12.9 % (20.0-44.0); MEAN CORPUSCULAR HGB CONC 33 g/dl (31.0-36.0); MEAN CORPUSCULAR VOLUME 94 fL (80-96); MONOCYTES # (AUTO) 0.2 /CMM (0.1-1.30); MONOCYTES % (AUTO) 2.3 % (2.0-12.0); NEUTROPHILS # (AUTO) 7.4 /CMM (1.8-8.9); PLATELET COUNT (AUTO) 384 /CMM (150-450); RED BLOOD CELL COUNT(AUTO) 4.33 MIL/uL (4.5-6.0); WHITE BLOOD COUNT (AUTO) 8.8 K/uL (4.3-11.0)
[2020-03-16] MEDS: PANTOPRAZOLE 40 MG TABLET.DR PO SCH (07:30)
[2020-03-16] MEDS: *INSULIN REGULAR(HUMULIN R)HUM 100 UNIT/ML VIAL SQ PRN ×3 (07:31→21:21)
[2020-03-16] MEDS: BLOOD SUGAR DIAGNOSTIC 1 EACH STRIP VI SCH ×4 (07:31→21:22)
[2020-03-16 07:44] LABS: CALCIUM, SERUM 8.2 mg/dL (8.5-10.1); CREATININE 0.9 mg/dL (0.6-1.3); POTASSIUM 3.4 mmol/L (3.5-5.1)
--- NOTE | 2020-03-16 08:23 | NUR ---
RN NOTES PT TRANSFERRED TO ROOM 261, REQUIRING HIGH FLOW O2. HAND OFF REPORT GIVEN TO JEFE RN FOR LESLEY
--- NOTE | 2020-03-16 08:30 | NUR ---
MECHANICAL PROJECT MANAGER INITIAL NOTE RECEIVED PATIENT VIA BED, BEDSIDE REPORT RECEIVED FROM [facility]. NO DISTRESS NOTED ON [id number] VIA NON-REBREATHER WITH SPO2 94%. RT AT BEDSIDE AND PLACED PATIENT ON HI FLOW NC 50 LPM 100%. ON TELE MONITOR SR. SKIN WARM AND DRY TO TOUCH. PATIENT DENIES SOB. DENIES PAIN OR DISCOMFORT. ORIENTED PATIENT TO ROOM AND CALL LIGHT SYSTEM, RT TAYLOR TRANSLATED. PATIENT VERBALIZED UNDERSTANDING. ISOLATION PRECAUTIONS OBSERVED. HOB ELEVATED. SIDE RAILS UP AND LOCKED. BED KEPT AT LOWEST POSITION. CALL LIGHT KEPT WITHIN EASY REACH. WILL CONTINUE TO MONITOR.
[2020-03-16] MEDS ORDERED: POTASSIUM CHLORIDE 20 MEQ TAB.PRT.SR PO SCH (10:00)
[2020-03-16] MEDS: ENOXAPARIN SODIUM 40 MG/0.4 ML DISP.SYRIN SQ SCH (10:13)
[2020-03-16] MEDS: VANCOMYCIN 0.75 GM in IV D5W 250 ML IV SCH ×2 (10:14→21:01)
[2020-03-16 10:19] LABS: ABG BASE EXCESS -1.5 mmol/L; ABG OXYGEN SATURATION 92.7 % (92.0-98.5); ABG PCO2 28.1 mmHg (35.0-45.0); ABG PH 7.485 (7.350-7.450); ABG PO2 63.3 mmHg (75.0-100.0); AaDO2 621.6 mmHg; COHb 0.1 % (0.5-1.5); MetHb 0.2 % (0.0-1.5); O2Hb 92.4 % (94.0-97.0); SITE, ABG Right Radial; VENT MODE, BG HI FLO NC 50 L 100%
[2020-03-16] MEDS: methylPREDNISolone SOD SUCC 125 MG/2ML VIAL IV SCH (11:53)
[2020-03-16] MEDS: INSULIN REGULAR, HUMAN 100 UNIT/ML 3 ML VIAL SQ PRN (12:11)
--- NOTE | 2020-03-16 19:30 | NUR ---
MOTOR VEHICLE COMPLIANCE ANALYST NOTES RECEIVED PATIENT FROM AM NURSE,PATIENT RECEIVED IN BED ALERT ORIENTED X2 WITH PERIODS OF CONFUSION.PATIENT IS ON HIGH FLOW [id number]/MIN SATURATING 98%. BREATHING NORMAL NO SOB NOTED, NO S/S OF DISTRESS NOTED RESPIRATION EVEN NON LABORED. TELE MONITOR READING SR. HOB ELEVATED. ON ISOLATION, PRECAUTIONS OBSERVED. SAFETY MEASURES IN PLACE, BED IN LOW AND LOCKED POSITION. CALL LIGHT WITHIN REACH. WILL CONT TO MONITOR.
--- NOTE | 2020-03-16 19:41 | NUR ---
CARDIOVASCULAR OR NURSE CLOSING NOTE ALL DUE MEDS GIVEN. PATIENT WITH PERIODS OF CONFUSION, NEEDS REORIENTATION AND REMINDER. WITH EPISODE OF REMOVING HI FLOW. TOLERATING HI FLOW 60LPM 100%. SKIN WARM AND DRY TO TOUCH. NO DISTRESS NOTED. REFUSED PRONING AT THIS TIME. ISOLATION PRECAUTIONS OBSERVED. HOB ELEVATED. KEPT CLEAN AND DRY. TURNED AND REPOSITIONED TOLERATED. CALL LIGHT KEPT WITHIN EASY REACH. CONTINUITY OF CARE ENDORSED TO PM NURSE.
[2020-03-17] VITALS (23 sets, daily range): BP systolic 117–152; BP diastolic 58–87
[2020-03-17] MEDS: PIPERACILLIN /TAZOBACTAM 3.375 G in IV D5W 50 ML IV SCH ×4 (00:04→17:00)
--- NOTE | 2020-03-17 03:10 | NUR ---
0310 REPORT RECEIVED FROM DAPHNEY STODDARD FOR TRANSFER OF CARE WITH QUESTIONS ANSWERED.
--- NOTE | 2020-03-17 03:35 | NUR ---
0335 RECEIVED PATIENT FROM ICU VIA BED ON ACLS MONITOR ACCOMPANIED BY 2 RNS AND RT. PATIENT AWAKE AND VERBALLY RESPONSIVE. ON NC DURING TRANSPORT AND SWITCHED IMMEDIATELY TO HI FLOW OXYGEN. O2 SATURATION NOTED IN THE HIGH 80S THEN IMPROVED TO LOW 90S. VITAL SIGNS TAKEN ACCORDINGLY. SYSTEMS ASSESSMENT DONE. HOB ELEVATED FOR MAXIMUM OXYGENATION. ENCOURAGED PATIENT TO MAINTAIN PRONE POSITION. KEPT CLEAN AND COMFORTABLE. CALL LIGHT WITHIN REACH. PLACED ON DROPLET ISOLATION WITH ALL PRECAUTIONS STRICTLY OBSERVED.
--- NOTE | 2020-03-17 03:35 | NUR ---
RN NOTE RECEIVED PT FROM DAPHNEY STODDARD UNDER ACLS PROTOCOL.
--- NOTE | 2020-03-17 03:36 | NUR ---
FILLETER NOTES GAVE REPORT TO SHANNON CHARGE NURSE RYAN. TRANSFER PATENT TO ICU OVER FLOW ROOM 101 WITH [address]S PR[address] IN PLACE. NO SOB NOTED PATIENT IN STABLE CONDITION.
[2020-03-17 04:14] LABS: BASOPHILS # (AUTO) 0.1 /CMM (0.0-0.2); BASOPHILS % (AUTO) 1.2 % (0.0-2.0); HEMATOCRIT 38 % (39-51); HEMOGLOBIN 12.5 g/dL (13.5-17.5); LYMPHOCYTES # (AUTO) 1.2 /CMM (0.8-4.8); LYMPHOCYTES % (AUTO) 15.5 % (20.0-44.0); MEAN CORPUSCULAR HGB CONC 33 g/dl (31.0-36.0); MEAN CORPUSCULAR VOLUME 93 fL (80-96); MONOCYTES # (AUTO) 0.2 /CMM (0.1-1.30); MONOCYTES % (AUTO) 2.5 % (2.0-12.0); NEUTROPHILS % (AUTO) 79.8 % (43.0-81.0); PLATELET COUNT (AUTO) 384 /CMM (150-450); RED BLOOD CELL COUNT(AUTO) 4.04 MIL/uL (4.5-6.0); WHITE BLOOD COUNT (AUTO) 7.5 K/uL (4.3-11.0)
[2020-03-17 04:22] LABS: CALCIUM, SERUM 8.1 mg/dL (8.5-10.1); POTASSIUM 3.8 mmol/L (3.5-5.1)
--- NOTE | 2020-03-17 07:15 | NUR ---
RN INITIAL NOTES RECEIVED PT AWAKE, A/OX2. ON HIGH FLOW 02. HOB ELEVATED. NO SOB NOTED. DENIES ANY PAIN. PT CONNECTED TO PORTABLE MONITOR. RICHIE MIDLINE IN PLACE. PT COMFORTABLE. CALL LIGHT WITHIN REACH. REPOSITIONING WHEN ABLE DUE TO ISOLATION. WILL MONITOR
[2020-03-17] MEDS: BLOOD SUGAR DIAGNOSTIC 1 EACH STRIP VI SCH ×4 (07:55→22:00)
[2020-03-17] MEDS: methylPREDNISolone SOD SUCC 125 MG/2ML VIAL IV SCH (08:01)
[2020-03-17] MEDS: PANTOPRAZOLE 40 MG TABLET.DR PO SCH (08:01)
[2020-03-17] MEDS: VANCOMYCIN 0.75 GM in IV D5W 250 ML IV SCH ×2 (08:02→21:22)
[2020-03-17] MEDS: ENOXAPARIN SODIUM 40 MG/0.4 ML DISP.SYRIN SQ SCH (08:03)
--- NOTE | 2020-03-17 08:05 | NUR ---
WOUND CARE CONSULT: REVIEWED CHART, NURSING DOCUMENTATION AND PHOTOS WHICH SHOW RASH TO PERINEAL/GROIN AREAS AND OPEN SKIN(INCONTINENCE ASSOCIATED) TO LEFT BUTTOCK. DR MENDOZA NOTIFIED OF SURGICAL CONSULT REQUEST. RECOMMENDATIONS MADE FOR SKIN PROTECTION. DISCUSSED WITH NURSING STAFF. PT ON BILLINGS ISOFLEX LOW AIRLOSS BED. CURRENT CRYSTAL SCORE IS 14. MD IN AGREEMENT WITH PLAN OF CARE.
[2020-03-17 08:49] LABS: ABG BASE EXCESS 1.3 mmol/L; ABG OXYGEN SATURATION 93.3 % (92.0-98.5); ABG PCO2 32.1 mmHg (35.0-45.0); ABG PH 7.492 (7.350-7.450); ABG PO2 69.9 mmHg (75.0-100.0); COHb 0.3 % (0.5-1.5); MetHb 0.4 % (0.0-1.5); O2Hb 92.6 % (94.0-97.0); SITE, ABG Right Radial; VENT MODE, BG HI FLO NC 60L 100%
--- NOTE | 2020-03-17 10:00 | NUR ---
RN NOTES 0845 SEEN AND EXAMINED BY DR LONG. AWARE OF LAB VALUES AND CXR RESULT. PT REMAINS ON HIGH FLOW 02. HOB ELEVATED. 02 SAT OM LOW 90S. ORDERED ABG AND TRANSFER TO ICU. WILL CLOSELY MONITOR 0945 SEEN AND EXAMINED BY DR CROUCH. PT A/OX2. ON HIGH FLOW 02. HOB ELEVATED. AWARE OF DR LONG'S ORDER TO TRANSFER TO ICU, AGREED. WILL CLOSELY MONITOR
[2020-03-17] MEDS: INSULIN REGULAR, HUMAN 100 UNIT/ML 3 ML VIAL SQ PRN (11:12)
[2020-03-17] MEDS: CLOTRIMAZOLE 1% 15 GM TUBE TP SCH ×2 (15:23→17:01)
[2020-03-17] MEDS: IV NS 0.9% 250 ML IV PRN (17:43)
--- NOTE | 2020-03-17 18:25 | NUR ---
RN CLOSING NOTES NO SIGNIFICANT CHANGE NOTED. REMAINS A/O, ON HIGH FLOW 02. KEPT HOB ELEVATED. DENIES ANY PAIN. TX PROVIDED ORDERED. KEPT CLEAN AND DRY. REPOSITIONED WHEN ABLE DUE TO ISOLATION. KEPT COMFORTABLE. WILL ENDORSE FOR CONTINUITY OF CARE.
--- NOTE | 2020-03-17 20:00 | NUR ---
RN NOTES RECEIVED PATIENT ASLEEP ON BED. STRICTLY ON ISOLATION FOR +COVID19. NO ACUTE RESPIRATORY DISTRESS. WITH HI FLOW 0XYGEN @ 60 LPM W. PATIENT IS AOX 2 WITH PERIODS OF CONFUSION WITH FIO2 100%. SR ON TELE MONITOR IV SITE ON RAC MIDLINE AND RAC G 20 INTACT AND PATENT. BLOOD SUGAR WILL CHECK ORDERED. ENCOURAGED PATIENT TO KEPT HOB ELEVATED. KEPT PT CLEAN AND DRY. WILL CONTINUE TO MONITOR
[2020-03-18] VITALS (40 sets, daily range): BP systolic 98–150; BP diastolic 33–87
[2020-03-18] MEDS: PIPERACILLIN /TAZOBACTAM 3.375 G in IV D5W 50 ML IV SCH ×4 (00:51→17:42)
[2020-03-18 04:43] LABS: BASOPHILS % (AUTO) 0.5 % (0.0-2.0); EOSINOPHILS % (AUTO) 0.2 % (0.0-6.0); HEMATOCRIT 39 % (39-51); HEMOGLOBIN 12.7 g/dL (13.5-17.5); LYMPHOCYTES # (AUTO) 1.1 /CMM (0.8-4.8); LYMPHOCYTES % (AUTO) 12.4 % (20.0-44.0); MEAN CORPUSCULAR HGB CONC 33 g/dl (31.0-36.0); MEAN CORPUSCULAR VOLUME 93 fL (80-96); MONOCYTES # (AUTO) 0.3 /CMM (0.1-1.30); MONOCYTES % (AUTO) 3.2 % (2.0-12.0); NEUTROPHILS # (AUTO) 7.5 /CMM (1.8-8.9); NEUTROPHILS % (AUTO) 83.7 % (43.0-81.0); PLATELET COUNT (AUTO) 412 /CMM (150-450); RED BLOOD CELL COUNT(AUTO) 4.17 MIL/uL (4.5-6.0)
[2020-03-18 04:59] LABS: CALCIUM, SERUM 8.4 mg/dL (8.5-10.1); POTASSIUM 3.4 mmol/L (3.5-5.1)
--- NOTE | 2020-03-18 07:00 | NUR ---
RN NOTES PATIENT REMAINED STABLE IN HI-FLOW O2 60 LMP AND FIO2 100%. ISOLATION PRECAUTION FOR +COVID STRICTLY IMPLEMENTED. NO SIGNIFICANT CHANGES THROUGHOUT THE SHIFT. COMPLIANT WITH ALL MED. CARE. RESTRAINT RELEASE AND REMAINED COMPLIANT. KEPT PT CLEAN AND DRY. ALL NEEDS ATTENDED.
--- NOTE | 2020-03-18 07:45 | NUR ---
ICU/RN INITIAL NOTES,AM RECEIVED REPORT FROM NIGHT NURSE. PT ALERT, FOLLOWS COMMANDS, BAHRAINI SPEAKING. PT ON HIGH FLOW, 60 LITERS, 100% FIO2, TOLERATING WELL, MAINTAINING O2 SAT. SINUS ON TELE. HAMPTON CATH IN PLACE, DRAINING YELLOW URINE. PT ON STRICT ISOLATION PRECAUTIONS FOR COVID19. PIV AND MIDLINE PATENT AND INTACT, NO S/S OF INFECTION OR INFILTRATION NOTED. ALL NEEDS WILL BE ATTENDED TO, SAFETY MEASURES TAKEN, BED IN LOW POSITION, SIDE RAILS UP, CALL LIGHT WITHIN REACH. PT TURNED AND REPOSITIONED.
[2020-03-18] MEDS: BLOOD SUGAR DIAGNOSTIC 1 EACH STRIP VI SCH ×4 (07:56→22:00)
[2020-03-18] MEDS: PANTOPRAZOLE 40 MG TABLET.DR PO SCH (07:56)
[2020-03-18] MEDS: methylPREDNISolone SOD SUCC 125 MG/2ML VIAL IV SCH (08:02)
[2020-03-18] MEDS: ENOXAPARIN SODIUM 40 MG/0.4 ML DISP.SYRIN SQ SCH (08:02)
[2020-03-18] MEDS: CLOTRIMAZOLE 1% 15 GM TUBE TP SCH ×2 (08:03→17:40)
[2020-03-18 08:22] LABS: ABG BASE EXCESS 0.4 mmol/L; ABG OXYGEN SATURATION 91.9 % (92.0-98.5); ABG PCO2 36.5 mmHg (35.0-45.0); ABG PH 7.439 (7.350-7.450); ABG PO2 58.4 mmHg (75.0-100.0); AaDO2 618.1 mmHg; MetHb 0.1 % (0.0-1.5); O2Hb 91.8 % (94.0-97.0); SITE, ABG Right Radial; VENT MODE, BG HFNC
[2020-03-18] MEDS: VANCOMYCIN 0.75 GM in IV D5W 250 ML IV SCH (08:41)
[2020-03-18] MEDS ORDERED: POTASSIUM CHLORIDE 20 MEQ TAB.PRT.SR PO SCH (10:00)
[2020-03-18] MEDS: VALSARTAN 80 MG TABLET PO SCH (10:28)
[2020-03-18] MEDS: INSULIN REGULAR, HUMAN 100 UNIT/ML 3 ML VIAL SQ PRN (11:36)
[2020-03-18 15:09] LABS: ABG BASE EXCESS 1.2 mmol/L; ABG OXYGEN SATURATION 94.5 % (92.0-98.5); ABG PCO2 35.7 mmHg (35.0-45.0); ABG PH 7.458 (7.350-7.450); ABG PO2 69.4 mmHg (75.0-100.0); AaDO2 427.4 mmHg; COHb 0.4 % (0.5-1.5); MetHb 0.3 % (0.0-1.5); O2Hb 93.8 % (94.0-97.0); SITE, ABG Left Radial; VENT MODE, BG HFNC
[2020-03-18] MEDS: *INSULIN REGULAR(HUMULIN R)HUM 100 UNIT/ML VIAL SQ PRN (17:59)
--- NOTE | 2020-03-18 18:22 | NUR ---
ICU/RN:CONVALESCENT PLASMA STARTED, WILL MONITOR FOR ADVERSE REACTIONS. BLOOD CONSENT IN CHART.
--- NOTE | 2020-03-18 19:22 | NUR ---
ICU/RN: NO S/S OF ADVERSE REACTIONS NOTED. PLASMA TRANSFUSION COMPLETE. VSS. AFEBRILE
--- NOTE | 2020-03-18 19:24 | NUR ---
ICU/RN: ENDING NOTES,AM REPORT ENDORSED TO NIGHT NURSE. PT ON HIGH FLOW TITRATED TO 50LITERS FLOW WITH 75% FIO2, OK TO KEEP SPO2 >92%. PT SINUS ON TELE. HAMPTON CATH IN PLACE, DRAINING YELLOW URINE. SOME SELENE REDNESS NOTED, SELENE CARE RENDERED. PIV'S PATENT AND INTACT, NO S/S OF INFECTION NOTED. PLASMA TRANSFUSION COMPLETE, TOLERATED WELL. PT ENCOURAGED TO GO INTO PRONE POSITION, SAID HE WILL AFTER DINNER. ENDORSED TO NIGHT NURSE TO PRONE PT. ALL NEEDS ATTENDED TO, SAFETY MEASURES TAKEN, BED IN LOW POSITION, SIDE RAILS UP, CALL LIGHT WITHIN REACH. BED BATH GIVEN, TURNED AND REPOSITIONED.
--- NOTE | 2020-03-18 19:40 | NUR ---
DIRECT SUPPORT STAFF MEMBER OPENING NOTES, RECEIVED PATIENT AWAKE IN BED, ALERT/ORIENTED X3/4. FOLLOWS COMMANDS, MOZAMBICAN SPEAKING. PATIENT IS ON HIGH FLOW, 60 LITERS, 100% FIO2, TOLERATING WELL, MAINTAINING O2 SAT. SINUS ON TELE. HAMPTON CATH IN PLACE, DRAINING YELLOW URINE TO THE GRAVITY. PATIENT ON STRICT ISOLATION PRECAUTIONS FOR POSITIVE COVID19. PIV AND MIDLINE PATENT AND INTACT, NO S/S OF INFILTRATION NOTED. SAFETY MEASURES TAKEN, BED IN LOW/LOCKED POSITION, SIDE RAILS UP X2, CALL LIGHT WITHIN REACH. WILL CONTINUE TO MONITOR THE PATIENT CLOSELY.
--- NOTE | 2020-03-18 21:00 | NUR ---
PATIENT WAS PLACED ON PRONE POSITION PER MDS ORDER. TOLERATING WELL. O2 SATURATION 99%, CONTINUING WITH HIGH FLOW TOLERATING WELL. VS NORMAL. CALL LIGHT WITHIN REACH WILL CONTINUE TO MONITOR.
--- NOTE | 2020-03-18 22:06 | NUR ---
PT RECEIVED ON HFNC 55L, 75% FIO2. PT IS AWAKE AND NO SOB. TOLERATING SETTINGS. CONTINUE TO MONITOR. Addendum: 03/18/20 at 2207 by SKYE ELIAS RT Amended: Links added.
[2020-03-19] VITALS (46 sets, daily range): BP systolic 91–141; BP diastolic 36–71
--- NOTE | 2020-03-19 | NUR ---
PATIENT STILL ON PRONE POSITION, TOLERATING WELL O2 SAT 99% ON HIGH FLOW. HR 60 AND BP 134/51. WILL CONTINUE TO MONITOR.
[2020-03-19 04:50] LABS: CALCIUM, SERUM 8.6 mg/dL (8.5-10.1); CREATININE 1.1 mg/dL (0.6-1.3); POTASSIUM 3.8 mmol/L (3.5-5.1)
--- NOTE | 2020-03-19 07:21 | NUR ---
WIND DEVELOPMENT DIRECTOR CLOSING NOTES, PATIENT IN BED SLEEPING, ALERT/ORIENTED X3 A LITTLE FORGETFUL. FOLLOWS COMMANDS, GREEK SPEAKING. PATIENT IS ON HIGH FLOW, TOLERATING WELL, MAINTAINING O2 SAT. SINUS ON TELE IN 60S. HAMPTON CATH IN PLACE, DRAINING YELLOW URINE TO THE GRAVITY. PATIENT ON STRICT ISOLATION PRECAUTIONS FOR POSITIVE COVID19. RAC #20 AND RICHIE MIDLINE PATENT AND INTACT, NO S/S OF INFILTRATION NOTED. SAFETY MEASURES TAKEN, BED IN LOW/LOCKED POSITION, SIDE RAILS UP X2, CALL LIGHT WITHIN REACH. ENDORSED THE PATIENT TO AM RN FOR LESLEY.
--- NOTE | 2020-03-19 08:00 | NUR ---
manager agriculture received pt in bed aox4 vs stable on high flow o2 sat 94% 80% fio2, no distress noted vs stable, mullen patent iv access patent, no distress noted vs stable all pt needs meet turn and repositon in bed breakfast 100% consumed safety measures taken call light w/ in reach will continue to monitor.
[2020-03-19] MEDS: PANTOPRAZOLE 40 MG TABLET.DR PO SCH (08:16)
[2020-03-19] MEDS: VALSARTAN 80 MG TABLET PO SCH (08:16)
[2020-03-19] MEDS: methylPREDNISolone SOD SUCC 125 MG/2ML VIAL IV SCH (08:17)
[2020-03-19] MEDS: CLOTRIMAZOLE 1% 15 GM TUBE TP SCH ×2 (08:25→17:50)
[2020-03-19] MEDS: ENOXAPARIN SODIUM 40 MG/0.4 ML DISP.SYRIN SQ SCH (08:25)
[2020-03-19] MEDS: BLOOD SUGAR DIAGNOSTIC 1 EACH STRIP VI SCH ×4 (08:25→21:25)
[2020-03-19] MEDS: INSULIN REGULAR, HUMAN 100 UNIT/ML 3 ML VIAL SQ PRN (13:04)
--- NOTE | 2020-03-19 17:46 | NUR ---
RT PATIENT REMAINS ON HFNC 60L 95%. PATIENT RESPONSIVE TO COMMANDS AND IS HAVING MOD AMT OF SOB. ABG IS SHOWING ADEQUATE VENTILATION. PER DR CROUCH WILL CONT CURRENT RESP CARE. Addendum: 03/19/20 at 1749 by JENNA YE RT Amended: Links added. Addendum: 03/19/20 at 1750 by JENNA YE RT PATIENT CURRENTLY ON 60L 75% FIO2.
--- NOTE | 2020-03-19 19:10 | NUR ---
PROP SAWYER OPENING NOTES, RECEIVED PATIENT AWAKE IN BED, ALERT/ORIENTED X2 [place] SPEAKING UNDERSTAND LITTLE URDU WITH EPISODE OF CONFUSION. PATIENT IS ON HIGH FLOW, 60 LITERS, 75% FIO2, TOLERATING WELL, MAINTAINING O2 SAT. SINUS ON TELE. HAMPTON CATH IN PLACE, DRAINING YELLOW URINE TO THE GRAVITY. PATIENT ON DROPLET ISOLATION PRECAUTIONS FOR POSITIVE COVID19. PIV AND MIDLINE PATENT AND INTACT, NO S/S OF INFILTRATION NOTED. SAFETY MEASURES TAKEN, BED IN LOW/LOCKED POSITION, SIDE RAILS UP X2, CALL LIGHT WITHIN REACH. WILL CONTINUE TO MONITOR THE PATIENT CLOSELY.
--- NOTE | 2020-03-19 20:00 | NUR ---
RT PATIENT REMAINS ON HFNC 60L 75%. SPO2 96-97. HR 65-70. NO SOB NOTED. PT COMFY/ASLEEP. WILL CONTINUE TO MONITOR T/O SHIFT Addendum: 03/19/20 at 2002 by LORENE HAMILTON RT Amended: Links added.
[2020-03-19] MEDS: *INSULIN REGULAR(HUMULIN R)HUM 100 UNIT/ML VIAL SQ PRN (21:25)
[2020-03-20] VITALS (42 sets, daily range): BP systolic 94–127; BP diastolic 43–76
[2020-03-20] MEDS: IV NS 0.9% 250 ML IV PRN (02:08)
[2020-03-20 04:27] LABS: CALCIUM, SERUM 8.4 mg/dL (8.5-10.1); CREATININE 0.9 mg/dL (0.6-1.3); POTASSIUM 3.7 mmol/L (3.5-5.1)
[2020-03-20] MEDS: PANTOPRAZOLE 40 MG TABLET.DR PO SCH (07:00)
[2020-03-20] MEDS: BLOOD SUGAR DIAGNOSTIC 1 EACH STRIP VI SCH ×4 (07:13→22:33)
[2020-03-20] MEDS: INSULIN REGULAR, HUMAN 100 UNIT/ML 3 ML VIAL SQ PRN ×3 (07:14→17:45)
--- NOTE | 2020-03-20 07:29 | NUR ---
DRIED YEAST SUPERVISOR NOTES PT SLEEPING ON BED STILL ON HIGH FLOW RATE PER ORDERED NO SIGN AND SYMPTOMS OF DISTRESS SPO2 @ 96% NO PAIN COMPLAINT, PT ON GOOD CONDITION ON TELE MONITOR WITH READING SR 70'S NO SIGNIFICANT CHANGES ON CONDITION NOTED ALL NEEDS ATTENDED, DROPLET ISOLATION STILL OBSERVED FOR COVID 19 (+) SAFETY MEASURE MAINTAINED BED ON LOWEST POSITION AND LOCKED CALL LIGHT WITHIN REACH WILL CONT TO MONITOR
[2020-03-20] MEDS: VALSARTAN 80 MG TABLET PO SCH (08:46)
[2020-03-20] MEDS: methylPREDNISolone SOD SUCC 125 MG/2ML VIAL IV SCH (08:46)
[2020-03-20] MEDS: ENOXAPARIN SODIUM 40 MG/0.4 ML DISP.SYRIN SQ SCH (08:47)
[2020-03-20] MEDS: CLOTRIMAZOLE 1% 15 GM TUBE TP SCH ×2 (08:48→17:43)
--- NOTE | 2020-03-20 18:36 | NUR ---
HANDER IN NOTES PT AWAKE A/O X2 WITH SOME CONFUSION FINNISH SPEAKING WITH LITTLE CHADIAN STILL ON HIGH FLOW RATE PER ORDERED NO SIGN AND SYMPTOMS OF DISTRESS SPO2 @ 96% NO PAIN COMPLAINT, PT ON GOOD CONDITION ON TELE MONITOR WITH READING SR 70'S NO SIGNIFICANT CHANGES ON CONDITION NOTED ALL NEEDS ATTENDED, DROPLET ISOLATION STILL OBSERVED FOR COVID 19 (+) SAFETY MEASURE MAINTAINED BED ON LOWEST POSITION AND LOCKED CALL LIGHT WITHIN REACH WILL ENDORSE TO PM SHIFT NURSE
--- NOTE | 2020-03-20 19:00 | NUR ---
Received patient awake,alert,follows commands,Bengali speaking , speaks and understands very little Syriac but seems coherent.On Contact/Droplet isolation for Covid 19. On High flow O2 60 L/ 75% Fio2,not in any respiratory distress,breathing regular and non labored.Needs attended.
--- NOTE | 2020-03-20 21:00 | NUR ---
Confuse, forgetful.After speaking to family( niece Milagro), I ask the patient who is Milagro and he responded "she's my friend. Also as per niece patient has a son, Thierno ,when i ask patient what's his son's name ,he mentioned anther name but he knows he has 1 son.
--- NOTE | 2020-03-20 22:00 | NUR ---
Remains stable,breathing non labored but still only saturating 92-93 % with High Flow .
[2020-03-20] MEDS: *INSULIN REGULAR(HUMULIN R)HUM 100 UNIT/ML VIAL SQ PRN (22:38)
[2020-03-21] VITALS (27 sets, daily range): BP systolic 83–129; BP diastolic 31–73
--- NOTE | 2020-03-21 | NUR ---
Asleep,breathing regular,non labored tzeinvyeol15-05%.
--- NOTE | 2020-03-21 04:00 | NUR ---
Saturating 84-86% after AM bath, but not in any distress,breathing regular and non labored.
--- NOTE | 2020-03-21 04:30 | NUR ---
Still only saturating 86 %,but remains calm ,breathing non labored.Resp Therapist at bedside increased FIO2 85 % then 90%, but still only saturating 87-88%.Increased FIO2 to 100 %.
[2020-03-21 04:56] LABS: BASOPHILS % (AUTO) 0.5 % (0.0-2.0); EOSINOPHILS % (AUTO) 0.6 % (0.0-6.0); HEMATOCRIT 36 % (39-51); HEMOGLOBIN 12.2 g/dL (13.5-17.5); LYMPHOCYTES # (AUTO) 1.9 /CMM (0.8-4.8); LYMPHOCYTES % (AUTO) 23.9 % (20.0-44.0); MEAN CORPUSCULAR HGB CONC 34 g/dl (31.0-36.0); MEAN CORPUSCULAR VOLUME 94 fL (80-96); MONOCYTES # (AUTO) 0.5 /CMM (0.1-1.30); MONOCYTES % (AUTO) 6.3 % (2.0-12.0); NEUTROPHILS # (AUTO) 5.4 /CMM (1.8-8.9); NEUTROPHILS % (AUTO) 68.7 % (43.0-81.0); PLATELET COUNT (AUTO) 374 /CMM (150-450); RED BLOOD CELL COUNT(AUTO) 3.84 MIL/uL (4.5-6.0); WHITE BLOOD COUNT (AUTO) 7.9 K/uL (4.3-11.0)
--- NOTE | 2020-03-21 05:00 | NUR ---
Placed on high arauz's / upright position, still saturating only 87-88 %, placed on NRM 100 % with the High Flow, saturation maintaining 90-92 %.Patient looks comfortable ,denies any difficulty breathing,no S/S of respiratory distress.
--- NOTE | 2020-03-21 05:00 | NUR ---
RT NOTE PATIENT INCREASED FIO2 TO 100% DUE TO DESATURATION 86%. PATIENT PLACED ON 15L NONREBREATHER. SPO2 IMPROVED TO 91%. PRIMARY NURSE NOTIFIED AND AWARE. WAITING FOR FURTHER ORDERS. Addendum: 03/21/20 at 0600 by MARITZA JORDAN RT Amended: Links added.
[2020-03-21 05:05] LABS: CALCIUM, SERUM 8.8 mg/dL (8.5-10.1); CREATININE 1.1 mg/dL (0.6-1.3); MAGNESIUM 1.8 mg/dL (1.8-2.4); PHOSPHORUS 3.3 mg/dL (2.5-4.9); POTASSIUM 3.6 mmol/L (3.5-5.1)
--- NOTE | 2020-03-21 05:30 | NUR ---
ABG drawn by RT while patient still saturating only 91 %.
[2020-03-21 05:40] LABS: ABG BASE EXCESS -0.5 mmol/L; ABG OXYGEN SATURATION 89.5 % (92.0-98.5); ABG PCO2 35.6 mmHg (35.0-45.0); ABG PH 7.434 (7.350-7.450); ABG PO2 57.3 mmHg (75.0-100.0); AaDO2 620.1 mmHg; COHb 0.2 % (0.5-1.5); MetHb 0.1 % (0.0-1.5); O2Hb 89.2 % (94.0-97.0); SITE, ABG Left Radial
--- NOTE | 2020-03-21 05:45 | NUR ---
RT NOTE ABG DONE. REPORTED RESULTS TO PRIMARY NURSE. WAITING FOR FURTHER ORDERS AT THIS TIME. PATIENT SHOWS NO SIGNS OF RESPIRATORY DISTRESS. SPO2 IS AT 98% AT THIS TIME.
--- NOTE | 2020-03-21 06:00 | NUR ---
ABG result relayed to Dixon RUIZ. PH=[phone], CO2=35.6, PO2=57.3,HCO#=23.3,Sat=89.5. 99ABG taken while patient is only saturating 91 % via pulse ox).Made him aware though that patient is now saturating 97-98 %. Ordered to just keep the patient on present settings ( Hi flow and NRM 100%)
[2020-03-21] MEDS: IV NS 0.9% 250 ML IV PRN (07:20)
[2020-03-21] MEDS: BLOOD SUGAR DIAGNOSTIC 1 EACH STRIP VI SCH ×4 (07:30→22:20)
--- NOTE | 2020-03-21 07:30 | NUR ---
RN OPENING NOTE: RECEIVED PATIENT IN BED THIS MORNING. PATIENT IS CONFUSED, VERBALLY RESPONSIVE AND ABLE TO FOLLOW SIMPLE COMMANDS. FAROESE SPEAKING. PATIENT IS ON ISOLATION PRECAUTIONS FOR COVID 19 (+). CURRENTLY ON HIGH FLOW O2 60L/100% FIO2, NO SIGNS OF RESPIRATORY DISTRESS NOTED. NO SIGNS OF ACUTE DISTRESS NOTED. HAMPTON CATHETER DRAINING CLEAR YELLOW URINE. CCHO DIET, ABLE TO FEED SELF. RICHIE MIDLINE, C/D/I, FLUSHES WELL, NO SIGNS OF COMPLICATIONS NOTED. SAFETY MEASURES IMPLEMENTED, BED IN LOWEST POSITION, LOCKED, SIDE RAILS UP, CALL LIGHT WITHIN REACH. WILL CONTINUE TO MONITOR PATIENT FOR CHANGES.
[2020-03-21] MEDS: PANTOPRAZOLE 40 MG TABLET.DR PO SCH (08:16)
[2020-03-21] MEDS: ENOXAPARIN SODIUM 40 MG/0.4 ML DISP.SYRIN SQ SCH (08:17)
[2020-03-21] MEDS: CLOTRIMAZOLE 1% 15 GM TUBE TP SCH ×2 (08:17→17:31)
[2020-03-21] MEDS: VALSARTAN 80 MG TABLET PO SCH (08:25)
[2020-03-21] MEDS ORDERED: methylPREDNISolone SOD SUCC 40 MG/ML VIAL IV SCH (09:00)
[2020-03-21 12:07] LABS: ABG BASE EXCESS -0.6 mmol/L; ABG PCO2 33.3 mmHg (35.0-45.0); ABG PH 7.452 (7.350-7.450); AaDO2 527.6 mmHg; COHb 0.5 % (0.5-1.5); MetHb 0.1 % (0.0-1.5); O2Hb 95.4 % (94.0-97.0); SITE, ABG Left Radial; VENT MODE, BG HFNC 60 LPM 90%
[2020-03-21] MEDS: INSULIN REGULAR, HUMAN 100 UNIT/ML 3 ML VIAL SQ PRN ×2 (12:16→17:44)
--- NOTE | 2020-03-21 18:47 | NUR ---
RN CLOSING NOTE: PATIENT IS CURRENTLY RESTING IN BED. NO SIGNS OF RESPIRATORY DISTRESS NOTED. NO SIGNS OF ACUTE DISTRESS NOTED. TELE MONITOR SR IN THE 70S. ISOLATION PRECAUTIONS MAINTAINED FOR COVID (+). SAFETY MEASURES IMPLEMENTED. BED IN LOWEST POSITION, LOCKED, SIDE RAILS UP, CALL LIGHT WITHIN REACH. WILL ENDORSE TO ONCOMING SHIFT RN FOR CONTINUITY OF CARE.
[2020-03-22] VITALS (27 sets, daily range): BP systolic 93–146; BP diastolic 47–81
--- NOTE | 2020-03-22 00:52 | NUR ---
RT INCREASED FLOW RATE TO 60 AND FI02 TO 100 %,DUE PATIENT PATIENT DESATURATION. RN NOTIFIED , PATIENT STABLE AT THIS TIME. WILL CONTINUE TO MONITOR. Addendum: 03/22/20 at 0055 by ASTRID DILLON RT Amended: Links added.
[2020-03-22 04:55] LABS: CREATININE 0.8 mg/dL (0.6-1.3); POTASSIUM 3.5 mmol/L (3.5-5.1)
[2020-03-22] MEDS: BLOOD SUGAR DIAGNOSTIC 1 EACH STRIP VI SCH ×4 (06:31→21:39)
--- NOTE | 2020-03-22 07:30 | NUR ---
RN AM NOTES RECEIVED PATIENT IN BED, ASLEEP, RESPONDS TO NAME AND TOUCH, DANISH SPEAKING, AOX2, WITH EPISODES OF CONFUSION, VERBALLY RESPONSIVE AND ABLE TO FOLLOW SIMPLE COMMANDS. CURRENTLY ON HIGH FLOW O2 60L/100% FIO2, NO SIGNS OF RESPIRATORY DISTRESS NOTED. NO SIGNS OF ACUTE DISTRESS NOTED. SR ON MONITOR. DENIES PAIN AT THIS TIME, WITH RICHIE MIDLINE AND RFA G20 BOTH FLUSHES WELL, BOTH SITES CLEAR, ON ISOLATION PRECAUTIONS FOR COVID 19 (+). HAMPTON CATHETER DRAINING CLEAR YELLOW URINE. CCHO DIET, ABLE TO FEED SELF. SEE NURSING ASSESSMENT FOR SKIN ISSUES. SAFETY MEASURES IMPLEMENTED, BED IN LOWEST POSITION, LOCKED, SIDE RAILS UP, CALL LIGHT WITHIN REACH. WILL CONTINUE TO MONITOR PATIENT FOR CHANGES.
[2020-03-22] MEDS: PANTOPRAZOLE 40 MG TABLET.DR PO SCH (07:53)
[2020-03-22] MEDS: ENOXAPARIN SODIUM 40 MG/0.4 ML DISP.SYRIN SQ SCH (08:02)
[2020-03-22] MEDS: CLOTRIMAZOLE 1% 15 GM TUBE TP SCH ×2 (08:03→16:34)
[2020-03-22] MEDS: VALSARTAN 80 MG TABLET PO SCH (08:03)
--- NOTE | 2020-03-22 09:30 | NUR ---
RN NOTES DUE MEDS GIVEN
[2020-03-22] MEDS: INSULIN REGULAR, HUMAN 100 UNIT/ML 3 ML VIAL SQ PRN (11:59)
--- NOTE | 2020-03-22 18:34 | NUR ---
RN CLOSING NOTES PATIENT RESTING IN BED, WATCHING TV, TURKISH SPEAKING, AOX2, WITH EPISODES OF CONFUSION, VERBALLY RESPONSIVE AND ABLE TO FOLLOW SIMPLE COMMANDS. CURRENTLY ON HIGH FLOW O2 60L/100% FIO2, NO SIGNS OF RESPIRATORY DISTRESS NOTED. NO SIGNS OF ACUTE DISTRESS NOTED. SR ON MONITOR. DENIES PAIN AT THIS TIME, WITH RICHIE MIDLINE AND RFA G20 BOTH FLUSHES WELL, BOTH SITES CLEAR, ON ISOLATION PRECAUTIONS FOR COVID 19 (+). HAMPTON CATHETER DRAINING CLEAR YELLOW URINE. WITH 850 ML OUTPUT. CCHO DIET, ABLE TO FEED SELF. PERFORMED PRESCRIBED SKIN CARE AND PM CARE EARLIER. SAFETY MEASURES IMPLEMENTED, BED IN LOWEST POSITION, LOCKED, SIDE RAILS UP, CALL LIGHT WITHIN REACH. ALL NEEDS MET. WILL ENDORSE TO NEXT SHIFT FOR LESLEY
--- NOTE | 2020-03-22 19:54 | NUR ---
ICU/OPENING RECEIVED PATIENT A/OX2, PATIENT IS ABLE TO STATE FULL NAME AND YEAR BUT BELIEVED HE IS IN [place]. PATIENT IS IN NO SIGN OF ANY DISTRESS OR ANY SOB. PATIENT IS ON HIGH FLOW 02 WITH 60L AND FI02 OF 100% PATIENT IS SATURATING AT 93%. NSR WITH HR 74 ON BEDSIDE MONITOR. RICHIE MIDLINE AND RFA #20 BOTH PATENT AD FLUSHING ON H/L. FC IS DRAINING VIA GRAVITY WITH YELLOW OUTPUT. ALL EXTREMITIES HAVE MILD WEAKNESS BUT ABLE TO USE FORCE. PATIENT IS COMFORTABLE APPLIED WARM BLANKET AND REPOSITIONED PATIENT. ALL SAFETY PRECAUTIONS APPLIED WITH CALL LIGHT WITHIN REACH. WILL CONTINUE TO MONITOR PATIENT THROUGHOUT SHIFT.
--- NOTE | 2020-03-22 20:28 | NUR ---
FIO2 INCREASED TO 45% DUE TO LOW O2 SAT. RN NOTIFIED. CONTINUE TO MONITOR PT. TITRATE FIO2 ABLE.
--- NOTE | 2020-03-22 22:14 | NUR ---
PATIENT ASLEEP, BREATHING NON LABORED WITH NO SIGN OF ANY SOB. SATURATING AT 94%-97%
[2020-03-23] VITALS (20 sets, daily range): BP systolic 99–130; BP diastolic 56–87
[2020-03-23 05:13] LABS: CALCIUM, SERUM 8.2 mg/dL (8.5-10.1); CREATININE 0.8 mg/dL (0.6-1.3); POTASSIUM 3.8 mmol/L (3.5-5.1)
--- NOTE | 2020-03-23 07:14 | NUR ---
ICU/CLOSING PATIENT IN BED WITH NO SIGNS OF ANY SOB OR ANY DISTRESS. PATIENT ON HIGH FLOW WITH 45L SATURATING AT 95%. PATIENT DOES NOT COMPLAIN OF ANY SOB. NO FLUIDS RUNNING BOTH IV ON H/L. FC PATENT AND DRAINING. CALL LIGHT WITHIN REACH, ALL SAFETY PRECAUTIONS HAVE BEEN APPLIED. WILL ENDORSE TO MORNING SHIFT NURSE
[2020-03-23] MEDS: VALSARTAN 80 MG TABLET PO SCH (07:59)
[2020-03-23] MEDS: ENOXAPARIN SODIUM 40 MG/0.4 ML DISP.SYRIN SQ SCH (07:59)
[2020-03-23] MEDS: PANTOPRAZOLE 40 MG TABLET.DR PO SCH (07:59)
--- NOTE | 2020-03-23 08:00 | NUR ---
RN NOTES AT BEDSIDE, PATIENT AWAKE, ALERT AND ORIENTED X 2-3, ABLE TO FOLLOW COMMANDS, NO SIGN OF DISTRESS NOTED. BREATHING UNLABORED. ON HIGH FLOW, SATING 94% AT THIS TIME. SINU RHYTHM ON THE MONITOR WITH HR ON THE 70S. NO COMPLAINTS OF PAIN. BLOOD SUGAR AT 133. PATIENT ABLE TO SWALLOW FOOD AND MEDICATION WITH EASE. ABLE TO MOVE UPPER EXTREMITIES PURPOSEFULLY. HAMPTON CATHETER IN PLACE AND DRAINING TO CLEAR YELLOW URINE. SAFETY MEASURES IN PLACE. BED IN LOW AND LOCKED POSITIONED. CALL LIGHT WITHIN REACH, WILL CONTINUE TO MONITOR PATIENT ACCORDINGLY
[2020-03-23] MEDS: BLOOD SUGAR DIAGNOSTIC 1 EACH STRIP VI SCH ×4 (08:12→22:03)
[2020-03-23] MEDS: INSULIN REGULAR, HUMAN 100 UNIT/ML 3 ML VIAL SQ PRN ×2 (08:13→14:00)
[2020-03-23] MEDS: CLOTRIMAZOLE 1% 15 GM TUBE TP SCH ×2 (08:20→17:12)
--- NOTE | 2020-03-23 08:30 | NUR ---
RN NOTES PATIENT ON NASAL CANNULA FROM HIGH FLOW
[2020-03-23 08:47] LABS: ABG BASE EXCESS 1.7 mmol/L; ABG OXYGEN SATURATION 88.4 % (92.0-98.5); ABG PCO2 37.4 mmHg (35.0-45.0); ABG PH 7.451 (7.350-7.450); ABG PO2 54.5 mmHg (75.0-100.0); AaDO2 209.4 mmHg; COHb 0.5 % (0.5-1.5); MetHb 0.2 % (0.0-1.5); O2Hb 87.8 % (94.0-97.0); SITE, ABG Right Radial; VENT MODE, BG 6L N/C
--- NOTE | 2020-03-23 16:30 | NUR ---
rn notes patient transferred to tele at room 106 via acls protocol. blood sugar checked at 105. report given to DAPHNEY Guillaume. Hands off
--- NOTE | 2020-03-23 16:30 | NUR ---
RN NOTE: Patient received from DAPHNEY Mosley. Arrived in unit via bed in stable condition. on cont. o2 via NC @ 4lpm and being tolerated well. IV sites clean, dry, patent and intact. No pain noted on patient. Side rails-up x3, Call light in reach. Bed locked, low and at semi-arauz's position. Safety ensured and observed. Isolation for covid [address] Will continue to monitor.
--- NOTE | 2020-03-23 18:34 | NUR ---
RN closing note: Patient in bed. Awake, alert and oriented x4. Filipino-speaking only. Tele monitoring showing sinus rhythm noted. Isolation precaution for COVID-[address]. No SOB and not in respiratory distress. IV site clean, dry, patent and intact. Guillory catheter in place and draining yellow urine. Call light in reach. Bed locked, low and at semi-arauz's position. Safety ensured and observed. Will endorse to oncoming shift for LESLEY.
--- NOTE | 2020-03-23 19:42 | NUR ---
PUBLIC MESSAGE SERVICE SUPERVISOR NOTES PT SLEEPING ON BED ON O2 4L VIA NC NO SIGN AND SYMPTOMS OF DISTRESS SPO2 @ 96% NO PAIN COMPLAINT, PT ON GOOD CONDITION ON TELE MONITOR WITH READING SR 70'S NO SIGNIFICANT CHANGES ON CONDITION NOTED ALL NEEDS ATTENDED, DROPLET ISOLATION STILL OBSERVED FOR COVID 19 (+) SAFETY MEASURE MAINTAINED BED ON LOWEST POSITION AND LOCKED CALL LIGHT WITHIN REACH WILL CONT TO MONITOR
[2020-03-23] MEDS: *INSULIN REGULAR(HUMULIN R)HUM 100 UNIT/ML VIAL SQ PRN (22:03)
[2020-03-24] VITALS (7 sets, daily range): BP systolic 105–140; BP diastolic 58–72
--- NOTE | 2020-03-24 06:54 | NUR ---
RN CLOSING NOTES PT SLEEPING ON BED NO SIGN AND SYMPTOMS OF RESPIRATORY DISTRESS, SPO2 >92% NO COMPLAINT OF PAIN, SO SIGNIFICANT CHANGES ON CONDITION NOTED, DROPLET ISOLATION MAINTAINED FOR COVID 19 (+) KEEP ON TELE MONITOR WITH CURRENT READING SINUS RHYTHM 80'S ALL NEEDS ATTENDED SAFETY MEASURE MAINTAINED, BED ON LOWEST POSITION AND LOCKED CALL LIGHT WITHIN REACHED WILL ENDORSED TO AM SHIFT NURSE
[2020-03-24] MEDS: PANTOPRAZOLE 40 MG TABLET.DR PO SCH (07:40)
--- NOTE | 2020-03-24 08:00 | NUR ---
RN OPENING NOTES RECEIVED PT. IN BED. NO ACUTE DISTRESS NOTED. A&OX3, MILD CONFUSION. PT. ON 5L O2 HUMIDIFIED VIA NC, SATURATING WELL AT 95%. PT. ON TELE MONITOR, SR NOTED WITH HR IN 70S. PT. HAMPTON PATENT, DRAINING TO GRAVITY. PT. RICHIE MIDLINE INTACT, PATENT, FLUSHED WELL. PT. SAFETY MAINTAINED. CALL LIGHT WITHIN REACH. WILL CONTINUE TO MONITOR.
[2020-03-24] MEDS: BLOOD SUGAR DIAGNOSTIC 1 EACH STRIP VI SCH ×4 (08:18→23:01)
[2020-03-24] MEDS: VALSARTAN 80 MG TABLET PO SCH (08:41)
[2020-03-24] MEDS: ENOXAPARIN SODIUM 40 MG/0.4 ML DISP.SYRIN SQ SCH (08:41)
[2020-03-24] MEDS: CLOTRIMAZOLE 1% 15 GM TUBE TP SCH ×2 (08:42→16:57)
[2020-03-24] MEDS: INSULIN REGULAR, HUMAN 100 UNIT/ML 3 ML VIAL SQ PRN ×2 (12:45→17:57)
--- NOTE | 2020-03-24 12:45 | NUR ---
RN NOTE PT. GLUCOSE READ 206 AT 0752. I ADMINISTERED 6 UNITS INSULIN PER SLIDING SCALE AT THE TIME, BUT DID NOT SCAN IT AT THE TIME. I SCANNED THE 6 UNITS OF INSULIN I ADMINISTERED (PER SLIDING SCALE) FOR THE 206 GLUCOSE AT 0752 AT 1245. PT. GLUCOSE AT 1206 WAS 98. PER SLIDING SCALE, NO INSULIN WAS ADMINISTERED.
--- NOTE | 2020-03-24 18:28 | NUR ---
RN CLOSING NOTES PT. IN BED. NO ACUTE DISTRESS NOTED. A&OX3, WITH INTERMITTENT CONFUSION. PT. ON 5L O2 HUMIDIFIED VIA NC, SATURATING WELL AT 94%. PT. ON TELE MONITOR, SR NOTED. PT. HAMPTON PATENT, DRAINING TO GRAVITY. PT. RICHIE MIDLINE INTACT, PATENT, FLUSHED WELL. PT. SAFETY MAINTAINED. CALL LIGHT WITHIN REACH. WILL ENDORSE PLAN OF CARE TO ONCOMING NURSE.
--- NOTE | 2020-03-24 19:10 | NUR ---
STUDENT NURSE NOTES RECEIVED PT IN BED AWAKE AND ABLE TO MAKE NEEDS KNOWN. PT A/O 2-3 AND MACEDONIAN SPEAKING. RESPIRATIONS EVEN AND UNLABORED WITH NO S/S OF ACUTE DISTRESS OR SOB NOTED. PT ON 5L O2 HUMIDIFIED VIA NC, SATURATING WELL AT 95-97%. PT ON TELE MONITOR, SR NOTED. PT WITH HAMPTON, PATENT AND DRAINING WELL. PT NOTED WITH RICHIE MIDLINE PATENT AND INTACT AND SL. SAFETY MEASURES IN PLACE WITH BED IN LOWEST LOCKED POSITION WITH SIDE RAILS UP X2. CALL LIGHT WITHIN REACH. WILL CONTINUE TO MONITOR.
[2020-03-25] VITALS: BP 114/62
[2020-03-25 04:00] VITALS: BP 109/65
--- NOTE | 2020-03-25 07:30 | NUR ---
IN HOME SALES CONSULTANT NOTES PT IN BED, AWAKE, ALERT AND ORIENTED, VERBALLY RESPONSIVE, CALL LIGHT WITHIN REACH, NO SHORTNESS OF BREATH, KEPT WARM AND COMFORTABLE IN BED.
--- NOTE | 2020-03-25 07:40 | NUR ---
PARTS SALES ASSOCIATE NOTES PT IN BED AWAKE AND ABLE TO MAKE NEEDS KNOWN. PT A/O 2-3 AND HUNGARIAN SPEAKING. RESPIRATIONS EVEN AND UNLABORED WITH NO S/S OF ACUTE DISTRESS OR SOB NOTED THROUGHOUT SHIFT. PT ON 5L O2 HUMIDIFIED VIA NC, SATURATING WELL AT 95-97%. PT ON TELE MONITOR, SR NOTED. PT WITH HAMPTON, PATENT AND DRAINING WELL. PT NOTED WITH RICHIE MIDLINE PATENT AND INTACT AND SL. SAFETY MEASURES IN PLACE WITH BED IN LOWEST LOCKED POSITION WITH SIDE RAILS UP X2. CALL LIGHT WITHIN REACH. WILL ENDORSE TO ONCOMING NURSE FOR LESLEY.
[2020-03-25 08:00] VITALS: BP 115/56
[2020-03-25] MEDS: VALSARTAN 80 MG TABLET PO SCH (09:00)
[2020-03-25] MEDS: PANTOPRAZOLE 40 MG TABLET.DR PO SCH (09:03)
[2020-03-25] MEDS: ENOXAPARIN SODIUM 40 MG/0.4 ML DISP.SYRIN SQ SCH (09:04)
[2020-03-25] MEDS: CLOTRIMAZOLE 1% 15 GM TUBE TP SCH (09:10)
[2020-03-25] MEDS: INSULIN REGULAR, HUMAN 100 UNIT/ML 3 ML VIAL SQ PRN ×2 (09:16→12:05)
[2020-03-25] MEDS: BLOOD SUGAR DIAGNOSTIC 1 EACH STRIP VI SCH ×4 (09:16→22:02)
[2020-03-25 12:00] VITALS: BP 110/66
--- NOTE | 2020-03-25 13:00 | NUR ---
FINISHING MANAGER NOTES PT IN BED, ASLEEP, EASILY AROUSABLE, ALERT AND ORIENTED, NO COMPLAINT OF PAIN, NOT IN DISTRESS, NEEDS ATTENDED, CALL LIGHT WITHIN REACH.
--- NOTE | 2020-03-25 14:43 | NUR ---
HAND RUG CLEANER NOTES SEEN AND EXAMINED BY DR. SANCHEZ, PLAN OF CARE DISCUSSED WITH PT, VERBALIZED UNDERSTANDING.
[2020-03-25 16:00] VITALS: BP 111/72
[2020-03-25] MEDS: CLOTRIMAZOLE/BETAMETASONE DIPROPIONATE 15 GM TUBE TP SCH (17:17)
--- NOTE | 2020-03-25 18:23 | NUR ---
AIRCRAFT SKIN BURNISHER NOTES PT IN BED, AWAKE, ALERT AND ORIENTED, NO COMPLAINT OF PAIN, RESPIRATIONS NORMAL, REMINDED PT TO ALWAYS PUT HIS OXYGEN ON, VERBALIZED UNDERSTANDING, PM CARE PROVIDED, PM MEDS GIVEN, CALL LIGHT WITHIN REACH, ALL NEEDS ATTENDED.
--- NOTE | 2020-03-25 19:38 | NUR ---
RN OPENING NOTE PT IN BED, AWAKE, A/O X 3 ZIMBABWEAN SPEAKING. ON 02 5 L/MIN VIA NC, NO C/O PAIN AT THIS TIME, PT IN NO RESPIRATORY DISTRESS. RICHIE MIDLINE PATENT AND INTACT FLUSHING WELL. HAMPTON CATH PATENT AND INTACT DRAINING YELLOW URINE. SAFETY MEASURES IN PLACE CALL LIGHT WITHIN REACH. WILL CONT TO MONITOR PT.
[2020-03-25 20:00] VITALS: BP 114/58
[2020-03-26] VITALS: BP 126/67
[2020-03-26 04:00] VITALS: BP 108/62
--- NOTE | 2020-03-26 07:04 | NUR ---
RN CLOSING NOTE PT IN BED, AWAKE, ON 02 5 L/MIN VIA NC, NO C/O PAIN AT THIS TIME, PT IN NO RESPIRATORY DISTRESS DURING SHIFT. RICHIE MIDLINE PATENT AND INTACT FLUSHING WELL. HAMPTON CATH PATENT AND INTACT DRAINING YELLOW URINE. SAFETY MEASURES IN PLACE CALL LIGHT WITHIN REACH ENDORSED TO AM RN FOR LESLEY
[2020-03-26] MEDS: BLOOD SUGAR DIAGNOSTIC 1 EACH STRIP VI SCH ×4 (07:30→21:54)
[2020-03-26] MEDS: PANTOPRAZOLE 40 MG TABLET.DR PO SCH (07:30)
[2020-03-26 08:00] VITALS: BP 119/59
[2020-03-26] MEDS: VALSARTAN 80 MG TABLET PO SCH (09:00)
[2020-03-26] MEDS: ENOXAPARIN SODIUM 40 MG/0.4 ML DISP.SYRIN SQ SCH (09:00)
[2020-03-26] MEDS: CLOTRIMAZOLE/BETAMETASONE DIPROPIONATE 15 GM TUBE TP SCH ×2 (09:00→17:53)
[2020-03-26] MEDS ORDERED: BISACODYL SUPP (10 MG) 10 MG/SUPP.RECT SUPP.RECT RC ONE (11:30)
[2020-03-26] MEDS: DOCUSATE SODIUM 100 MG CAPSULE PO SCH ×2 (11:30→17:00)
[2020-03-26 12:00] VITALS: BP 105/68
--- NOTE | 2020-03-26 13:38 | NUR ---
PATIENT IS IN BED RESTING. PATIENT IS ON 5L O2 NC. PATIENT DEINIES SHORTNESS OF BREATH, PAIN, AND DISCOMFORT. PATIENT SAID HE WAS CONSTIPATED. COLACE GIVEN. PATIENT REFUSED DULCOLAX SUPPOSITORY. HOB ELEVATED. CALL LIGHT IN REACH. BED IN LOW POSITION. WILL MONITOR PATIENT THROUGHOUT SHIFT.
[2020-03-26 16:00] VITALS: BP 110/63
--- NOTE | 2020-03-26 17:16 | NUR ---
PATIENT REFUSED MORE COLACE. HE ALREADY HAD A BIG BM.
--- NOTE | 2020-03-26 18:40 | NUR ---
PATIENT IN BED RESTING. ORAL COVID SWAB COMPLETED AND SENT TO LAB. NO SIGNS AND SYMPTOMS OF PAIN, DISCOMFORT OR SHORTNESS OF BREATH. BED IN LOW POSITION. CALL LIGHT IN REACH. WILL GIVE REPORT TO NIGHT NURSE.
--- NOTE | 2020-03-26 18:44 | NUR ---
NO INULIN AVAILABLE. NOTIFIED PHARMACY.
[2020-03-26 20:00] VITALS: BP 108/68
[2020-03-26] MEDS: *INSULIN REGULAR(HUMULIN R)HUM 100 UNIT/ML VIAL SQ PRN (22:03)
[2020-03-27] VITALS: BP 121/69
[2020-03-27 04:00] VITALS: BP 113/65
--- NOTE | 2020-03-27 06:07 | NUR ---
RN NOTE PT REMOVED RICHIE MIDLINE. CHARGE NURSE AWARE
--- NOTE | 2020-03-27 06:24 | NUR ---
RN CLOSING NOTE PT IN BED, IN SEMI FOWLERS POSITION, AWAKE, ON 02 5 L/MIN VIA NC, NO C/O PAIN DURING SHIFT, PT IN NO RESPIRATORY DISTRESS DURING SHIFT. IV TO RIGHT HAND PATENT AND INTACT FLUSHING WELL. HAMPTON CATH PATENT AND INTACT DRAINING URINE BY GRAVITY. SAFETY MEASURES IN PLACE CALL LIGHT WITHIN REACH, ENDORSED TO AM RN FOR LESLEY
[2020-03-27 07:13] LABS: CALCIUM, SERUM 8.7 mg/dL (8.5-10.1); CREATININE 0.8 mg/dL (0.6-1.3)
[2020-03-27 08:00] VITALS: BP 111/61
--- NOTE | 2020-03-27 08:00 | NUR ---
wave solder offbearer Notes Pt is received in bed. Alert and oriented *4. Saturation 92%.Cannula 5 L.Sliight SOB noted. Sinus tachy HR 110. Jackie color urine noted.R right NS flushed well and intact. Plan of care discussed with patient. Call light within reach. We will continue to monitor
[2020-03-27] MEDS: PANTOPRAZOLE 40 MG TABLET.DR PO SCH (08:02)
[2020-03-27] MEDS: DOCUSATE SODIUM 100 MG CAPSULE PO SCH ×2 (08:02→16:29)
[2020-03-27] MEDS: VALSARTAN 80 MG TABLET PO SCH (08:03)
[2020-03-27] MEDS: ENOXAPARIN SODIUM 40 MG/0.4 ML DISP.SYRIN SQ SCH (08:04)
[2020-03-27] MEDS: INSULIN REGULAR, HUMAN 100 UNIT/ML 3 ML VIAL SQ PRN (08:15)
[2020-03-27] MEDS: CLOTRIMAZOLE/BETAMETASONE DIPROPIONATE 15 GM TUBE TP SCH ×2 (08:16→16:30)
[2020-03-27] MEDS: BLOOD SUGAR DIAGNOSTIC 1 EACH STRIP VI SCH ×4 (08:19→21:38)
[2020-03-27 12:00] VITALS: BP 120/72
[2020-03-27] MEDS: *INSULIN REGULAR(HUMULIN R)HUM 100 UNIT/ML VIAL SQ PRN ×3 (12:11→21:46)
[2020-03-27 12:57] LABS: ABG BASE EXCESS -1.2 mmol/L; ABG OXYGEN SATURATION 91.7 % (92.0-98.5); ABG PCO2 31.6 mmHg (35.0-45.0); ABG PH 7.456 (7.350-7.450); ABG PO2 57.8 mmHg (75.0-100.0); AaDO2 191.1 mmHg; COHb 0.7 % (0.5-1.5); MetHb 0.3 % (0.0-1.5); O2Hb 90.8 % (94.0-97.0); SITE, ABG Right Radial; VENT MODE, BG 5 lpm N/C
--- NOTE | 2020-03-27 13:53 | NUR ---
computer forensics analyst Notes ABG is done and notified the caseworker intake. No discharge at this time due to low saturation by Dr Charles.Plan of treatment continues. Addendum: 03/27/20 at 1358 by EDGAR PENNINGTON RN correction per dr michael hold discharge for now
--- NOTE | 2020-03-27 15:00 | NUR ---
telehealth nurse educator note resting comfortably all needs attended
[2020-03-27 16:00] VITALS: BP 128/76
--- NOTE | 2020-03-27 18:20 | NUR ---
senior telecommunications specialist note assisted to eat, will cont to monitor
[2020-03-27 20:00] VITALS: BP 113/60
--- NOTE | 2020-03-27 20:00 | NUR ---
received in bed alert good eye focus. speaks soft like in a whisper. slin warm and dry Guillory drainage clear yellow. Rurned TV on for him to watch.Pulse ox continious sats 92 - 93 % with 4 liters
[2020-03-28] VITALS: BP 110/64
[2020-03-28 04:00] VITALS: BP 113/60
[2020-03-28 04:01] VITALS: BP 107/60
--- NOTE | 2020-03-28 05:21 | NUR ---
Ending Notes: slept thru the night awakened when name spoken. good eye contact . he swallows w/o problems Sats thru the night 93 -96% on 4 liters. skin warm and dry kept on the pulse ox continious.
[2020-03-28 08:00] VITALS: BP 112/52
--- NOTE | 2020-03-28 08:00 | NUR ---
COMMUNITY INTEGRATION SPECIALIST NOTES PATIENT IN BED RESTING KYRGYZ SPEAKING. PATIENTS PERIPHERAL IV IS DISLODGED. NO BLEEDING NOTED. WITH HAMPTON INTACT PATENT DRAINING YELLOW URIN. BED IN LOW LOCKED POSITION. CALL LIGHT WITHIN REACH. WILL CONTINUE TO MONITOR.
[2020-03-28] MEDS: PANTOPRAZOLE 40 MG TABLET.DR PO SCH (08:42)
[2020-03-28] MEDS: ENOXAPARIN SODIUM 40 MG/0.4 ML DISP.SYRIN SQ SCH (08:43)
[2020-03-28] MEDS: DOCUSATE SODIUM 100 MG CAPSULE PO SCH ×2 (08:43→16:25)
[2020-03-28] MEDS: VALSARTAN 80 MG TABLET PO SCH (08:44)
[2020-03-28] MEDS: INSULIN REGULAR, HUMAN 100 UNIT/ML 3 ML VIAL SQ PRN (09:00)
[2020-03-28] MEDS: BLOOD SUGAR DIAGNOSTIC 1 EACH STRIP VI SCH ×4 (09:00→22:14)
[2020-03-28] MEDS: CLOTRIMAZOLE/BETAMETASONE DIPROPIONATE 15 GM TUBE TP SCH ×2 (09:01→16:23)
--- NOTE | 2020-03-28 10:05 | NUR ---
ok from md to d/c tele and transfer to clean unit once bed available.nursing sup made aware.
--- NOTE | 2020-03-28 11:30 | NUR ---
MS RN NOTES TRANSFERRED PATIENT TO ROOM 309-1 IN STABLE CONDITION. BEDSIDE REPORT GIVEN TO LISETH SHELLEY.
--- NOTE | 2020-03-28 12:00 | NUR ---
MS RN NOTES RECEIVED TRANSFER FROM [facility]. PATIENT IN MEDICALLY STABLE CONDITION. WILL CONTINUE TO MONITOR.
[2020-03-28] MEDS: *INSULIN REGULAR(HUMULIN R)HUM 100 UNIT/ML VIAL SQ PRN (12:18)
[2020-03-28 16:09] VITALS: BP 108/4
--- NOTE | 2020-03-28 18:48 | NUR ---
MS RN CLOSING NOTES PATIENT LAYING IN BED, AWAKE, A/O X3. PATIENT IS ON OXYGEN THERAPY ON 5 LPM; BREATHING IS EVEN AND UNLABORED. LFA # 22 PRESENT AND INTACT; FLUSHING WELL. NO COMPLAINS OF PAIN AT THIS MOMENT. ALL NEEDS ATTENDED TO THROUGHOUT THE DAY. SAFETY PRECAUTIONS IN PLACE; BED IN LOW POSITION AND LOCKED, CALL LIGHT WITHIN REACH. WILL ENDORSE TO FRANK SHIFT NURSE.
--- NOTE | 2020-03-28 19:10 | NUR ---
MS RN NOTES RECEIVED PT IN BED AWAKE AND ABLE TO MAKE NEEDS KNOWN. PT A/O X2-3 WITH PERIODS OF CONFUSION. RESPIRATIONS EVEN AND UNLABORED WITH NO S/S OF ACUTE DISTRESS OR SOB NOTED. NO COMPLAINTS OF PAIN AT THIS TIME. SAFETY MEASURES IN PLACE WITH BED IN LOWEST LOCKED POSITION WITH SIDE RAILS UP X2. CALL LIGHT WITHIN REACH. WILL CONTINUE TO MONITOR.
[2020-03-28 20:00] VITALS: BP 103/55
[2020-03-29] MEDS: BLOOD SUGAR DIAGNOSTIC 1 EACH STRIP VI SCH ×4 (07:03→21:29)
[2020-03-29] MEDS: INSULIN REGULAR, HUMAN 100 UNIT/ML 3 ML VIAL SQ PRN ×2 (07:04→12:03)
--- NOTE | 2020-03-29 07:04 | NUR ---
MS RN NOTES PT REFUSED SS COVERAGE INSULIN AT THIS TIME. WILL CONTINUE TO MONITOR.
--- NOTE | 2020-03-29 07:30 | NUR ---
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 A/O X3, vital signs stable, 5l oxygen via nasla cannula, saturation 94%, no shortness of breath. Denies any pain or discomfort at this time. Heplock to right hand flushing well with normal saline, no signs of infiltration seen. Bed in low setting, side rail x3 in upright position, brakes locked. Call light within reach, will continue to monitor and ensure safety.
--- NOTE | 2020-03-29 07:41 | NUR ---
MS RN NOTES PT IN BED AWAKE AND ABLE TO MAKE NEEDS KNOWN. PT A/O X2-3 WITH PERIODS OF CONFUSION. RESPIRATIONS EVEN AND UNLABORED WITH NO S/S OF ACUTE DISTRESS OR SOB NOTED THROUGHOUT SHIFT. NO COMPLAINTS OF PAIN AT THIS TIME. PT KEPT CLEAN, DRY, AND COMFORTABLE. SAFETY MEASURES IN PLACE WITH BED IN LOWEST LOCKED POSITION WITH SIDE RAILS UP X2. CALL LIGHT WITHIN REACH. WILL ENDORSE TO ONCOMING NURSE FOR [place].
[2020-03-29 08:00] VITALS: BP 109/62
[2020-03-29] MEDS: DOCUSATE SODIUM 100 MG CAPSULE PO SCH ×2 (08:30→16:14)
[2020-03-29] MEDS: PANTOPRAZOLE 40 MG TABLET.DR PO SCH (08:30)
[2020-03-29] MEDS: ENOXAPARIN SODIUM 40 MG/0.4 ML DISP.SYRIN SQ SCH (08:31)
[2020-03-29] MEDS: VALSARTAN 80 MG TABLET PO SCH (08:31)
[2020-03-29] MEDS: CLOTRIMAZOLE/BETAMETASONE DIPROPIONATE 15 GM TUBE TP SCH ×2 (08:34→17:59)
--- NOTE | 2020-03-29 09:15 | NUR ---
MS/DAPHNEY Sow Unable to scan medication due to label being torn, will notify pharmacy.
--- NOTE | 2020-03-29 09:31 | NUR ---
MS/RN S/B Ishmael Chang DNP Seen by DNP - labs ordered for tomorrow, await [place] evaluation.
--- NOTE | 2020-03-29 12:05 | NUR ---
MS/RN Blood sugar Blood sugar at noon 213, as per sliding scale, six units regular insulin administered.
--- NOTE | 2020-03-29 12:32 | NUR ---
MS/RN S/B Dr Damon Seen by Dr Damon - await for [facility] evaluation, if does not meet criteria then patient to remain in acute care setting until oxygen requirements are three liters or less. ABG ordered for tomorrow.
[2020-03-29 16:00] VITALS: BP 116/63
[2020-03-29 16:09] VITALS: BP 116/63
--- NOTE | 2020-03-29 16:14 | NUR ---
MS/RN Held medications Colace held as patient had two bowel movements today.
--- NOTE | 2020-03-29 16:58 | NUR ---
MS/RN Blood sugar Blood sugar at 1645 - 90, no coverage needed.
--- NOTE | 2020-03-29 18:22 | NUR ---
MS/RN End note Remains in stable condition, no new needs or concerns at this time, continue to wait for evaluation for placement at [facility]. Will endorse to shift superintendent caustic cresylate.
--- NOTE | 2020-03-29 19:40 | NUR ---
RN OPENING NOTES RECEIVED REPORT FROM THIERRY FRANCO. PER REPORT Pt IS WAITING FOR EVAL TO TRANSFER TO [facility], IF Pt DOES NOT MEET REQUIREMENTS TO HOLF OFF DC TO SNF UNTIL O2 REQUIREMENTS ARE DECREASED TO 3L. FOUND Pt AWAKE, RESTING IN BED, WATCHING TV. NO S/S OF ACUTE DISTRESS OR SOB NOTED. NO C/O PAIN OR DISCOMFORT AT THIS TIME. PER REPORT Pt IS A/OX2, WELSH SPEAKING, UNDERSTANDS SOME FAROESE. HAMPTON CATHETER IN PLACE. IV ACCESS ON R HAND #22G, SL. SAFETY MEASURES IN PLACE. BED LOW, LOCKED, HOB ELEVATED, SIDE RAILS UP, CALL LIGHT AND BEDSIDE TABLE WITHIN REACH. WILL CONTINUE TO MONITOR Pt's CONDITION AND SAFETY THROUGHOUT THE NIGHT.
[2020-03-29 20:00] VITALS: BP 123/72
[2020-03-29] MEDS: *INSULIN REGULAR(HUMULIN R)HUM 100 UNIT/ML VIAL SQ PRN (21:38)
[2020-03-30] MEDS: BLOOD SUGAR DIAGNOSTIC 1 EACH STRIP VI SCH ×4 (06:19→22:11)
[2020-03-30] MEDS: INSULIN REGULAR, HUMAN 100 UNIT/ML 3 ML VIAL SQ PRN ×3 (06:22→18:01)
--- NOTE | 2020-03-30 06:24 | NUR ---
RN OPENING NOTES AC ACCUCHECK BG 142. ADMINISTERED 2UN OF INSULIN PER SLIDING SCALE. Addendum: 03/30/20 at 0625 by ROCAEL REYES RN NOT OPENING NOTES. REGULAR RN NOTES.
--- NOTE | 2020-03-30 07:20 | NUR ---
RN CLOSING NOTES NO SIGNIFICANT CHANGES IN Pt's CONDITION. Pt REMAINED STABLE PER BASELINE. NO S/S OF ACUTE DISTRESS OR SOB NOTED DURING THE NIGHT. ALL NEEDS MET AND ATTENDED TO. Pt IS RESTING COMFORTABLY IN BED. SAFETY MEASURES IN PLACE. ENDORSED TO DAYSHIFT RN FOR Pt's LESLEY.
[2020-03-30] MEDS: PANTOPRAZOLE 40 MG TABLET.DR PO SCH (07:52)
[2020-03-30 08:00] VITALS: BP 109/52
--- NOTE | 2020-03-30 08:00 | NUR ---
MS RN OPENING NOTES RECEIVED PATIENT FROM ELECTRIC SHOVEL OPERATOR NURSE IN BED, AWAKE, CONSCIOUS, COOPERATIVE, 02 AT 5LPM VIA NASAL CANNULA, RIGHT HAND #22, HAMPTON CATH ATTACHED WITH YELLOWISH URINE, SIDE RAILS UP.
[2020-03-30] MEDS: DOCUSATE SODIUM 100 MG CAPSULE PO SCH ×2 (09:44→16:05)
[2020-03-30] MEDS: VALSARTAN 80 MG TABLET PO SCH (09:44)
[2020-03-30] MEDS: ENOXAPARIN SODIUM 40 MG/0.4 ML DISP.SYRIN SQ SCH (09:45)
[2020-03-30] MEDS: CLOTRIMAZOLE/BETAMETASONE DIPROPIONATE 15 GM TUBE TP SCH ×2 (09:48→16:06)
[2020-03-30 09:51] LABS: ABG BASE EXCESS 1.3 mmol/L; ABG OXYGEN SATURATION 98.3 % (92.0-98.5); ABG PCO2 29.3 mmHg (35.0-45.0); ABG PH 7.521 (7.350-7.450); ABG PO2 104.1 mmHg (75.0-100.0); AaDO2 147.4 mmHg; COHb 0.4 % (0.5-1.5); MetHb 0.1 % (0.0-1.5); O2Hb 97.8 % (94.0-97.0); SITE, ABG Right Radial; VENT MODE, BG NC 5L
[2020-03-30 10:52] LABS: BASOPHILS % (AUTO) 0.1 % (0.0-2.0); EOSINOPHILS % (AUTO) 0.4 % (0.0-6.0); HEMATOCRIT 33 % (39-51); HEMOGLOBIN 10.7 g/dL (13.5-17.5); LYMPHOCYTES # (AUTO) 0.6 /CMM (0.8-4.8); LYMPHOCYTES % (AUTO) 4.1 % (20.0-44.0); MEAN CORPUSCULAR HGB CONC 33 g/dl (31.0-36.0); MEAN CORPUSCULAR VOLUME 94 fL (80-96); MONOCYTES # (AUTO) 0.8 /CMM (0.1-1.30); MONOCYTES % (AUTO) 5.1 % (2.0-12.0); NEUTROPHILS # (AUTO) 13.8 /CMM (1.8-8.9); NEUTROPHILS % (AUTO) 90.3 % (43.0-81.0); PLATELET COUNT (AUTO) 184 /CMM (150-450); RED BLOOD CELL COUNT(AUTO) 3.46 MIL/uL (4.5-6.0); WHITE BLOOD COUNT (AUTO) 15.3 K/uL (4.3-11.0)
[2020-03-30 11:05] LABS: CALCIUM, SERUM 8.2 mg/dL (8.5-10.1); CREATININE 0.8 mg/dL (0.6-1.3); POTASSIUM 3.9 mmol/L (3.5-5.1)
[2020-03-30 16:00] VITALS: BP 97/65
--- NOTE | 2020-03-30 18:51 | NUR ---
MS RN CLOSING NOTES ENDORSED PATIENT TO [employer] ACCESS DEVELOPER NURSE IN BED, AWAKE, A/0 X2-3, 02 AT 5LPM VIA NASAL CANNULA, UNLABORED BREATHING, NO SIGNS OF RESPIRATORY DISTRESS, RIGHT HAND #22G, NO SIGNS OF REDNESS OR INFILTRATION NOTED, TAKEN PHOTO OF SACRAL WOUND AND PLACE IT IN PATIENT'S CHART FOR REFERENCE, HAMPTON CATH ATTACHED WITH YELLOWISH COLOR URINE, SIDE RAILS UP FOR SAFETY. RECEIVED PATIENT FROM [employer] ACCESS DEVELOPER NURSE IN BED, AWAKE, CONSCIOUS, COOPERATIVE, 02 AT 5LPM VIA NASAL CANNULA, RIGHT HAND #22, HAMPTON CATH ATTACHED WITH YELLOWISH URINE, SIDE RAILS UP.
--- NOTE | 2020-03-30 19:51 | NUR ---
MS/RN OPENING NOTES RECEIVED PATIENT IN BED, ALBANIAN SPEAKING BUT CAN UNDERSTAND AND SPEAK A LITTLE CHINESE, AWAKE, ALERT X2. COOPERATIVE TO CARE ON OXYGEN VIA NC AT 4 LITER, RESPIRATIONS EVEN AND UNLABORED.ON BED REST, MODERATE ASSISTANNCE IN REPOSIITON AND TURNING, WITH SACRAL SKIN TEAR. WITH HAMPTON DRAINING YELLOW URINE, MONITORING FOR ANY CHANGES, BED LOCKED, CALL LIGHTS WITHIN REACH.
[2020-03-30 20:00] VITALS: BP 124/75
[2020-03-30] MEDS ORDERED: CEFEPIME 1 GM VIAL ONE (22:43)
[2020-03-30] MEDS: CEFEPIME 1 GM in IV D5W 50 ML IV SCH (22:47)
[2020-03-31] MEDS: BLOOD SUGAR DIAGNOSTIC 1 EACH STRIP VI SCH ×4 (05:39→23:08)
[2020-03-31 06:16] LABS: BASOPHILS % (AUTO) 0.2 % (0.0-2.0); EOSINOPHILS % (AUTO) 1.5 % (0.0-6.0); HEMATOCRIT 32 % (39-51); HEMOGLOBIN 10.9 g/dL (13.5-17.5); LYMPHOCYTES % (AUTO) 11.3 % (20.0-44.0); MEAN CORPUSCULAR HGB CONC 34 g/dl (31.0-36.0); MEAN CORPUSCULAR VOLUME 94 fL (80-96); MONOCYTES # (AUTO) 0.8 /CMM (0.1-1.30); MONOCYTES % (AUTO) 8.8 % (2.0-12.0); NEUTROPHILS # (AUTO) 6.7 /CMM (1.8-8.9); NEUTROPHILS % (AUTO) 78.2 % (43.0-81.0); PLATELET COUNT (AUTO) 195 /CMM (150-450); RED BLOOD CELL COUNT(AUTO) 3.45 MIL/uL (4.5-6.0); WHITE BLOOD COUNT (AUTO) 8.5 K/uL (4.3-11.0)
--- NOTE | 2020-03-31 06:17 | NUR ---
306-1 MS/RN NOTES PATIENT ABLE TO SLEEP DURING THE NIGHT, ON OXYGEN VIA NC AT 3LITER, WALLISIAN SPEAKER, RESPIRATIONS EVEN AND UNLABORED. ATTENDED TO ALL NEEDS. IV SITE PATENT. MONITORED FOR ANY CHANGES. BED LOCKED, CALL LIGHTS WITHIN REACH. HAMPTON DRAINING YELLOW COLORED URINE, REPOSIITONED AND TURNED, KEPT SKIN INTACT AND DRY. WILL ENDORSE TO AM RN FOR LESLEY.
[2020-03-31 06:37] LABS: CALCIUM, SERUM 7.9 mg/dL (8.5-10.1); CREATININE 0.8 mg/dL (0.6-1.3); POTASSIUM 3.3 mmol/L (3.5-5.1)
--- NOTE | 2020-03-31 07:11 | NUR ---
MS/RN Opening note Patient received from shift supervisor film processing. A/O X2-3, currently on 3l oxygen via nasal cannula, saturation 94%, no shortness of breath noted, respirations even and unlabored. Denies pain and discomfort, vital signs within normal range, no fever noted. Bed in low setting, side rails X3 in upright position, brakes locked. Call light within reach, will continue to monitor and ensure safety.
[2020-03-31 08:00] VITALS: BP 137/65
[2020-03-31] MEDS ORDERED: POTASSIUM CHLORIDE 20 MEQ POWDER PACKET PO ONE (08:00)
[2020-03-31] MEDS: PANTOPRAZOLE 40 MG TABLET.DR PO SCH (08:42)
[2020-03-31] MEDS: CEFEPIME 1 GM in IV D5W 50 ML IV SCH ×2 (08:42→20:32)
[2020-03-31] MEDS: DOCUSATE SODIUM 100 MG CAPSULE PO SCH ×2 (08:42→16:42)
[2020-03-31] MEDS: VALSARTAN 80 MG TABLET PO SCH (08:43)
[2020-03-31] MEDS: CLOTRIMAZOLE/BETAMETASONE DIPROPIONATE 15 GM TUBE TP SCH ×2 (08:44→16:43)
[2020-03-31] MEDS: ENOXAPARIN SODIUM 40 MG/0.4 ML DISP.SYRIN SQ SCH (08:46)
--- NOTE | 2020-03-31 09:00 | NUR ---
MS/RN S/B Dr Chang Seen by DNP - awawalter for bed at [facility].
--- NOTE | 2020-03-31 11:00 | NUR ---
MS/RN S/B Dr Damon Seen by Dr Damon - patient to remain in the hospital setting until oxygen requirement 3l or less.
[2020-03-31] MEDS: INSULIN REGULAR, HUMAN 100 UNIT/ML 3 ML VIAL SQ PRN (11:53)
[2020-03-31 16:00] VITALS: BP 106/69
--- NOTE | 2020-03-31 16:47 | NUR ---
MS/RN Blood sugar Blood sugar 119, no coverage required.
--- NOTE | 2020-03-31 18:33 | NUR ---
MS/RN End note Patient remains in stable condition, continues to receive 4l oxygen via nasal cannula, saturation 95%. Patient desaturates quickly when oxgyen is removed or titrated. Awaitng bed at [facility]. Will endorse to child care associate teacher.
[2020-03-31 20:06] VITALS: BP 113/73
[2020-03-31 20:23] VITALS: BP 113/73
[2020-03-31] MEDS: *INSULIN REGULAR(HUMULIN R)HUM 100 UNIT/ML VIAL SQ PRN (23:08)
--- NOTE | 2020-04-01 07:00 | NUR ---
RN PM CLOSING NOTE; FC REMOVED ORDERED. FC REMOVED. PATIENT ADULT BRIEF CHANGED . BED DOWN LOCKED BS WNL. CALL LIGHT IN REACH PATIENT DENIES PAIN. RESP ARE EVEN AND UNLABORED.
--- NOTE | 2020-04-01 07:10 | NUR ---
ms rn received on bed, awake,alert,oriented x3.not in any form of distress.respirations even and unlabored,no sob noted,received w/ 5liters 02 saturating 97, decreased to 3 liters w/ 92% saturation, denies pain at this time,all needs attended.
[2020-04-01] MEDS: BLOOD SUGAR DIAGNOSTIC 1 EACH STRIP VI SCH ×4 (07:43→21:54)
[2020-04-01 08:00] VITALS: BP 110/77
--- NOTE | 2020-04-01 08:30 | NUR ---
ms burkett breakfast served,due meds given,tolerating well.
[2020-04-01] MEDS: CLOTRIMAZOLE/BETAMETASONE DIPROPIONATE 15 GM TUBE TP SCH ×2 (09:00→17:32)
[2020-04-01] MEDS: CEFEPIME 1 GM in IV D5W 50 ML IV SCH ×2 (09:46→20:33)
[2020-04-01] MEDS: VALSARTAN 80 MG TABLET PO SCH (10:02)
[2020-04-01] MEDS: DOCUSATE SODIUM 100 MG CAPSULE PO SCH ×2 (10:02→17:28)
[2020-04-01] MEDS: PANTOPRAZOLE 40 MG TABLET.DR PO SCH (10:02)
[2020-04-01] MEDS: ENOXAPARIN SODIUM 40 MG/0.4 ML DISP.SYRIN SQ SCH (10:06)
--- NOTE | 2020-04-01 11:30 | NUR ---
ms rn was seen by lgenn kelley/ orders made and carried out.
[2020-04-01] MEDS: *INSULIN REGULAR(HUMULIN R)HUM 100 UNIT/ML VIAL SQ PRN ×3 (13:51→21:53)
[2020-04-01 16:00] VITALS: BP 114/63
--- NOTE | 2020-04-01 18:53 | NUR ---
ms rn on bed, no distress noted all needs attended.
[2020-04-01 20:08] VITALS: BP 112/65
--- NOTE | 2020-04-02 06:06 | NUR ---
rn pm closing notes. patient seen in no apparent distress. patient in bed. denies pain. spo2 checked on ra found to be 90% saturating 94% on 2 lnc. patient denies sob. bed down locked srx2 bs this am is 93. bed down locked srx2.
--- NOTE | 2020-04-02 06:18 | NUR ---
tb quanterferon gold test result. call made to lab. spoke with coating technician dominick and was able to locate results for quantiferon tb test. hard copy requested. to be placed on the chart. acknowledged request will place on chart later this am.
[2020-04-02] MEDS: BLOOD SUGAR DIAGNOSTIC 1 EACH STRIP VI SCH ×4 (07:06→22:18)
--- NOTE | 2020-04-02 07:30 | NUR ---
ms rn received on bed, awake,alert,oriented x3,not in any form of distress, respirations even and unlabored,no sob noted,denies pain at this time.
[2020-04-02 08:00] VITALS: BP 150/65
[2020-04-02] MEDS: DOCUSATE SODIUM 100 MG CAPSULE PO SCH ×2 (08:57→16:08)
[2020-04-02] MEDS: VALSARTAN 80 MG TABLET PO SCH (08:57)
[2020-04-02] MEDS: CLOTRIMAZOLE/BETAMETASONE DIPROPIONATE 15 GM TUBE TP SCH ×2 (08:57→16:08)
[2020-04-02] MEDS: CEFEPIME 1 GM in IV D5W 50 ML IV SCH ×2 (08:57→21:29)
[2020-04-02] MEDS: PANTOPRAZOLE 40 MG TABLET.DR PO SCH (08:58)
--- NOTE | 2020-04-02 09:00 | NUR ---
ms burkett breakfast served,due meds given,tolerated well.
[2020-04-02] MEDS: ENOXAPARIN SODIUM 40 MG/0.4 ML DISP.SYRIN SQ SCH (09:06)
--- NOTE | 2020-04-02 11:00 | NUR ---
ms rn was seen by glenn kelley/ orders made and carried out.
[2020-04-02 12:19] LABS: BASOPHILS % (AUTO) 0.4 % (0.0-2.0); EOSINOPHILS % (AUTO) 1.9 % (0.0-6.0); HEMATOCRIT 37 % (39-51); HEMOGLOBIN 12.2 g/dL (13.5-17.5); LYMPHOCYTES # (AUTO) 1.4 /CMM (0.8-4.8); LYMPHOCYTES % (AUTO) 22.2 % (20.0-44.0); MEAN CORPUSCULAR HGB CONC 33 g/dl (31.0-36.0); MEAN CORPUSCULAR VOLUME 94 fL (80-96); MONOCYTES # (AUTO) 0.4 /CMM (0.1-1.30); MONOCYTES % (AUTO) 6.9 % (2.0-12.0); NEUTROPHILS # (AUTO) 4.4 /CMM (1.8-8.9); NEUTROPHILS % (AUTO) 68.6 % (43.0-81.0); PLATELET COUNT (AUTO) 283 /CMM (150-450); RED BLOOD CELL COUNT(AUTO) 3.98 MIL/uL (4.5-6.0); WHITE BLOOD COUNT (AUTO) 6.5 K/uL (4.3-11.0)
[2020-04-02 12:24] LABS: CALCIUM, SERUM 8.7 mg/dL (8.5-10.1); CREATININE 0.9 mg/dL (0.6-1.3)
[2020-04-02] MEDS: INSULIN REGULAR, HUMAN 100 UNIT/ML 3 ML VIAL SQ PRN ×2 (12:45→18:03)
[2020-04-02 12:55] LABS: BAND % (MANUAL) 3 % (0.0-5.0); EOSINOPHILS % (MANUAL) 1 % (0-4); LYMPHOCYTES % (MANUAL) 29 % (16-48); MONOCYTES % (MANUAL) 5 % (0-11.0); NEUTROPHILS % (MANUAL) 62 (42-76)
[2020-04-02 16:00] VITALS: BP 128/76
--- NOTE | 2020-04-02 18:49 | NUR ---
ms rn on bed, no distress noted.
--- NOTE | 2020-04-02 19:42 | NUR ---
ms ivnny initial notes received report from am nurse fiordaliza, and seen pt in bed awake and alert watching TV at this time, Kyrgyz speaking only, denies any pain or any discomfort. No SOB noted . Heplock at this time patent and intact. not in any acute distress noted. encourage him to use the call light system if he needs some help or needs the nurse and pt understood well. kept him comfortable and safe at all times. bed in low and lock in position with side rails x2 up. bed alarm set for pt safety. place call light at reach. will continue monitoring.
[2020-04-02 20:00] VITALS: BP 125/71
--- NOTE | 2020-04-02 21:30 | NUR ---
MS RN NOTES DUE IV [facility]
[2020-04-02] MEDS: *INSULIN REGULAR(HUMULIN R)HUM 100 UNIT/ML VIAL SQ PRN (22:19)
--- NOTE | 2020-04-03 | NUR ---
ms milk receiver notes pt sleeping comfortably in bed without any distress noted.
[2020-04-03] MEDS: BLOOD SUGAR DIAGNOSTIC 1 EACH STRIP VI SCH ×3 (06:00→18:17)
[2020-04-03] MEDS: INSULIN REGULAR, HUMAN 100 UNIT/ML 3 ML VIAL SQ PRN ×2 (06:00→11:55)
--- NOTE | 2020-04-03 06:07 | NUR ---
ms vinny notes pt woke up no signs of any distress noted. blood sugar checked done 118, no insulin due at this time, no signs of hypo glycemia noted. Morning care done with the helped of JESSICA Frederick. reposition pt for comfort. will continue monitoring. call light at reach.
--- NOTE | 2020-04-03 07:03 | NUR ---
ms bsw closing notes pt back to sleep after morning care done. no signs of any distress. Stable rashad the night. kept him warm and comfortable at all times. will endorse to am nurse for continuity of care. place call light at reach.
[2020-04-03 08:00] VITALS: BP 110/73
--- NOTE | 2020-04-03 08:00 | NUR ---
MS RN AM notes Received pt in bed awake and alert watching TV at this time, Estonian speaking with little french only, confused thinking that this hospital is his home right now, denies any pain or any discomfort. No SOB noted . Rt hand heplock at this time patent and intact. Not in any acute distress noted. Encourage him to use the call light system if he needs help or needs the nurse and pt understood well. kept him comfortable and safe at all times. Bed in low and lock in position with side rails x2 up. On bed alarm for pt safety. Placed call light within reach. will continue monitoring.
[2020-04-03 08:33] VITALS: BP 110/73
[2020-04-03] MEDS: DOCUSATE SODIUM 100 MG CAPSULE PO SCH ×2 (08:33→17:00)
[2020-04-03] MEDS: VALSARTAN 80 MG TABLET PO SCH (08:33)
[2020-04-03] MEDS: PANTOPRAZOLE 40 MG TABLET.DR PO SCH (08:33)
[2020-04-03] MEDS: ENOXAPARIN SODIUM 40 MG/0.4 ML DISP.SYRIN SQ SCH (08:34)
[2020-04-03] MEDS: CEFEPIME 1 GM in IV D5W 50 ML IV SCH (08:36)
[2020-04-03] MEDS: IV NS 0.9% 250 ML IV PRN (09:04)
[2020-04-03] MEDS: CLOTRIMAZOLE/BETAMETASONE DIPROPIONATE 15 GM TUBE TP SCH ×2 (11:26→18:16)
--- NOTE | 2020-04-03 13:00 | NUR ---
P.T. eval done and pt sat on the edge of the bed with O2 sat 90-91% on room air with no SOB.Pt refused to use O2 inspite of explaining its risks and benefits. No distress noted and pt denies SOB as well.
[2020-04-03] MEDS ORDERED: ENOX40DI SQ (15:19)
[2020-04-03] MEDS ORDERED: CLOT15CR5 TP (15:19)
[2020-04-03] MEDS ORDERED: CEFE1FRO IV (15:19)
[2020-04-03] MEDS ORDERED: DOCU-270 PO (15:19)
[2020-04-03] MEDS ORDERED: PANT40TA2 PO (15:19)
[2020-04-03] MEDS ORDERED: VALS80TA2 PO (15:19)
--- NOTE | 2020-04-03 18:30 | NUR ---
DISCHARGED PT TO [facility] WITH STABLE V/S.GAVE REPORT TO DAPHNEY ALBERTS OF [facility] 33[address] 3 EXT 8360.WITH RT HAND IV H/L GAUGE 14 INTACT FOR CONTINUATION OF IV ATB THERAPY. NO SWELLING OR REDNESS NOTED ON THE SITE AND IV H/L PATENT AND SITE IS CLEAN AND DRY. PT DENIES ANY PAIN OR DISTRESS.
== END 2020-04-03 18:31 | disposition short-term general hospital (02) | DRG 871 ==
LOC: ER 12:14 → TELE-TD 14:22 → TELE2 15:04 → TELE1 16:45 → TELE-TD 16:49 → TELE1 03-09 07:46 → ICU 03-16 07:29 → ICUOV 03-17 03:26 → ICU 03-17 11:27 → TELE1 03-23 16:28 → MEDSG1 03-28 10:05 → MED 03-28 11:25
PROVIDERS: ADMIT Student in an Organized Health Care Education/Training Program; ATTEND Registered Nurse
PROC: 5A2204Z Restoration of Cardiac Rhythm, Single (ICD-10-PCS; 2020-03-08)
PROC: 30233K1 Transfusion of Nonautologous Frozen Plasma into Peripheral Vein, Percutaneous Approach (ICD-10-PCS; principal; 2020-03-12)
PROC: 05H933Z Insertion of Infusion Device into Right Brachial Vein, Percutaneous Approach (ICD-10-PCS; 2020-03-16)
DX: A41.89 Other specified sepsis (principal); J96.01 Acute respiratory failure with hypoxia; J12.89 Other viral pneumonia; U07.1 COVID-19; N17.0 Acute kidney failure with tubular necrosis; I46.9 Cardiac arrest, cause unspecified; G92 Toxic encephalopathy; E87.0 Hyperosmolality and hypernatremia; E87.2 Acidosis; E44.0 Moderate protein-calorie malnutrition; N39.0 Urinary tract infection, site not specified; E86.0 Dehydration; I10 Essential (primary) hypertension; Z79.4 Long term (current) use of insulin; G20 Parkinson's disease; R26.9 Unspecified abnormalities of gait and mobility; E11.65 Type 2 diabetes mellitus with hyperglycemia; K59.00 Constipation, unspecified; L30.4 Erythema intertrigo; L98.9 Disorder of the skin and subcutaneous tissue, unspecified; E87.6 Hypokalemia; B36.9 Superficial mycosis, unspecified; Y95 Nosocomial condition; B95.62 Methicillin resistant Staphylococcus aureus infection as the cause of diseases classified elsewhere; B95.2 Enterococcus as the cause of diseases classified elsewhere
CPT/HCPCS: 31720; 36410; 36415; 36600; 71045-TC; 80048-TC; 80053-TC; 80061-TC; 80202-TC; 81000-TC; 82248-TC; 82550-TC; 82728-TC; 82803-TC; 82962-TC; 83605-TC; 83615-TC; 83735-TC; 83880; 84100-TC; 84443-TC; 84484-TC; 85025-TC; 85378-TC; 85396; 85730-TC; 86140-TC; 86480; 86850-TC; 87040-TC; 87081-TC; 87086-TC; 87186-TC; 94760-TC; 97110-TC; 97112-TC; 97116-TC; 97530-TC; A4217; G0378; J0456; J0692; J0696; J1650; J1815; J2543; J2920; J2930; J3262; J3370; J3490; J7030; J7040; J7050; J7060; P9017-BL; Q0163; Q9967; U0003-CS